=== PATIENT | male | born 1955 | race Caucasian/White ===

== ENCOUNTER 2025-04-29 09:32 | Outpatient (AMB) | payer OTHER, SELFPAY ==
--- OUTSIDE RECORDS SUMMARY | 2024-06-03 05:00 | XMS_ITS | Encounter Summary ---
Author Name [facility] [place] [facility] [place] Address [address], [place] [address] Care Team Providers Care [employer] Worker Name Role Phone ALBERTO JULIAN Primary Care Provider Unavailabl e Insurance Providers: All historical and current Section Date Range: From patient's date of to the date document was created. This section includes the names of all active insurance providers for the patient. Insurance Provider Type of Coverage Plan Name Start of Policy Coverage End of Policy Coverage Group Number Member ID Insurance Provider's Telephone Number Policy Dodson's Name Patient's Relationship to Policy Dodson MEDICARE (WNR) MEDICARE (M) PART B Mar 02, 2019 PART B [id number] [phone] RENATO FOLEYINO PATIENT MEDICARE (WNR) MEDICARE (M) PART A Jan 31, 2018 PART A [id number] ISAMAR FOLEY PATIENT [facility] (WNR) MEDICARE ADVANTAGE [facility] (WNR) Sep 02, 2019 [facility] [id number] OGISAMAR PATIENT [facility] (WNR) MEDICARE ADVANTAGE [facility](W NR) Sep 02, 2019 [facility] [id number] ISAMAR FOLEY PATIENT Selected Encounter This section includes the information on record at [place] for the Encounter. Date/Time Encounter Type Encounter Description Reason Provider Source Jun 03, 2024 09:00 AM COMPRE OPH EXAM EST PT 1/> OPTOMETRY ICD-10-CM H04.123 Dry eye syndrome of bilateral lacrimal glands VALE LUO [facility] Encounter Template Text not used by [place] Assessments - Encounter Diagnoses This section includes the primary and secondary diagnoses documented for the Encounter. 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 This section includes future appointments and future orders which are active, pending or scheduled. Future Appointments This section includes appointments that were scheduled to occur 6 months from the date of the Encounter, up to a maximum of 20 appointments. The data comes from all [place] treatment facilities. Appointment Date/Time Appointment Type Appointme nt Facility Name Aug 05, 2024 10:30 AM [facility] Sep 09, 2024 08:30 AM [facility] Sep 16, 2024 10:00 AM AMBULATORY - MEDICINE [facility] Social History: Smoking Status (Most current) and Tobacco Use (All prior to encounter date) This section includes the most current, and the historical, smoking and tobacco- related health factors from the [place] facility where the Encounter took place. Current Smoking Status This section includes the most current smoking, or tobacco-related health factor, from the [place] facility where the Encounter took place. Date/Time Current Smoking Status Comment Facil ity Feb 03, 2024 11:00 AM VA-TOBACCO NEVER USED [facility] Tobacco Use History This section includes a history of the smoking, or tobacco-related health factors, that were collected on or before the date of the Encounter. The data comes from the [place] facility where the Encounter took place. Date/Time Smoking Status/Tobacco Use Comment F acility January 25, 2023 11:00 AM VA-TOBACCO NEVER USED [facility] January 22, 2022 08:30 AM VA-TOBACCO NEVER USED [facility] January 10, 2021 09:00 AM VA-TOBACCO NEVER USED [facility] Dec 08, 2019 09:25 AM VA-TOBACCO NEVER USED [facility] Nov 17, 2018 09:09 AM VA-TOBACCO NEVER USED [facility] Jun 19, 2017 11:17 AM LIFETIME NON-TOBACCO USER [facility] May 17, 2016 10:41 AM LIFETIME NON-TOBACCO USER [facility] May 06, 2015 09:03 AM LIFETIME NON-TOBACCO USER [facility] Encounter Notes: All associated encounter notes This section contains the clinical notes associated to the Encounter. Date/Time Encounter Note(s) Provider Source Jun 03, 2024 07:10 AM OPTOMETRY NOTE: LOCAL TITLE: OPTOMETRY NOTE STANDARD TITLE: OPTOMETRY NOTE DATE OF NOTE: JUN 03, 2024@07:10 ENTRY DATE: JUN 03, 2024@07:10:39 AUTHOR: RHONDA MESSER COSIGNER: VALE LUO URGENCY: STATUS: COMPLETED OPTOMETRY NOTE Has ADDENDA Active problems - Computerized Problem List is the source for the followin. Hoarse 2. CAD - Coronary Artery Disease ([facility] [id number]) 3. Sleep apnea 4. Impaired fasting glucose 5. Hypercholesterolemia ([facility] [id number]) 6. Ankle pain 7. Impaired fasting glucose 8. Cocaine dependence in remission ([facility] [id number]) 9. Alcohol dependence 10. Housing lack 11. HTN - Hypertension 12. Non-cardiac chest pain Active Outpatient Medications (including Supplies): Active Outpatient Medications Status 1) AMLODIPINE BESYLATE 10MG TAB TAKE ONE TABLET BY MOUTH ACTIVE ONCE DAILY FOR BLOOD PRESSURE/HEART, DO NOT TAKE WITH GRAPEFRUIT JUICE 2) ASPIRIN 81MG EC TAB TAKE ONE TABLET BY MOUTH ONCE ACTIVE DAILY TO PREVENT STROKE/HEART ATTACK 3) ATORVASTATIN CALCIUM 80MG TAB TAKE ONE TABLET BY ACTIVE MOUTH AT BEDTIME 4) CLOPIDOGREL BISULFATE 75MG TAB TAKE ONE TABLET BY ACTIVE MOUTH ONCE DAILY 5) ISOSORBIDE MONONITRATE 30MG SA TAB TAKE ONE TABLET BY ACTIVE MOUTH ONCE DAILY 6) TAMSULOSIN HCL 0.4MG CAP TAKE ONE CAPSULE BY MOUTH AT ACTIVE BEDTIME Active Non-VA Medications Status 1) Non-VA MULTIVITAMIN/MINERALS CAP/TAB 1 TABLET BY ACTIVE MOUTH ONCE DAILY 7 Total Medications Allergies: Patient has answered NKA All medications including those prescribed by outside VA's, community providers, and all OTC meds were reviewed and reconciled with patient to the best of their abilities. This 69 year old MALE is seen today for annual CEE UVALDO: 05/28/23 Chief Complaint: Veterans reported that sometimes he feels a sharp pain in the right eye and the eyes fell dry. He only uses the Refresh gtt BID prn on the day that eyes are dry. 1 mo ago he experienced some thick serous discharge in the right eye after he touched his eyes and last for 2 days. He also reported itchiness occasionally along with mild redness but symptoms are relieved with rubbing eyes. Unaware of particular seasons that could trigger itchiness OHx: 1. Cataracts OU 2. Dry eyes OU 3. Refractive error OU Ocular Medications: Refresh gtt (-) Pain: (-) NAZARIO: (-) Diplopia: (-) Flashes: (+) Floaters: Longstanding OU (-) Amaurosis Fugax/Tia's: (-) Eye Injury: (-) Eye Surgery: (-) TBI FOHx: (-) Glaucoma/ARMD/Blindness VITALS (most recent, as listed in the electronic record): B/P: 137/77 (02/25/2024 11:52) Pulse: 62 (02/25/2024 11:52) Temperature: 97.4 F [36.3 C] (02/25/2024 11:52) Weight: 198 lb [89.81 kg] (02/25/2024 11:52) Height: 64 in [162.6 cm] (02/03/2024 10:47) BMI: BMI: 34.1 PERTINENT LABS: HEMOGLOBIN A1C TREND Collection DT Spec HGBA1c 01/03/2021 08:08 BLOOD 5.7 H (-) Smoker/Length of Time/PPD: Current Rx with last BCVA: OD: +1.00 SPH 20/20 OS: +1.25-0.50 x150 20/20 Add: +2.25 20/20 OU DVA ( )sc ( x )cc - phoropter OD: 20/20 OS: 20/20 Pupils: PERRL (-)APD EOMs: SAFE OU, (-)Pain/Diplopia CVF (facial, peripheral): FTFC OU Subjective Refraction: OD: +1.00 SPH 20/20 OS: +1.25-0.50 x150 20/20 Add: +2.25 20/20 OU All the above performed by student, reviewed by attending Anterior segment: Performed by student, repeated by attending Lids: Severe dermatochalasis OU Conj: Mild papillae and mild hyperemia OU Cornea: Dense Arcus OU AC: D&Q OU Angles: 4x4 OU Iris: flat and clear OU Lens: 1+ NSC OU Tonometry: Performed by student, reviewed by attending [x ] GAT [ ] iCare OD 15 mmHg OS 17 mmHg Time:9:10am Fundus exam: Dilated: xxx Non dilated: Dilating Drops: 1GTT 1 % Tropicamide OU & 1GTT 2.5% Phenylephrine OU (Pt. ed. on side effects, dilation warning given and verbal consent obtained) Patient advised not to drive if they feel they have any symptoms which could affect their ability to drive safely. Patient advised not to engage in any activities which could put themselves or others at risk if they feel they have any symptoms which could affect their ability to perform those activities safely. Performed by student, repeated by attending Vit: PVD OU C/D: 0.25 OD and 0.15 OS with pink & healthy rim tissue Macula: OD: trace fine drusens at temporally at para-fovea OS: trace hard drusens superiorly at para-fovea PPole: clear OU A/V: 2/3 Vessels: normal caliber OU Periph: flat and intact (-)holes, tears, detachments 360 OU Assessment/Plan: 1. Dry eyes OU; symptomatic - Pt. ed. on today's findings - Ordering Refresh to use BID-QID OU even on days when eyes are not feeling dry and recommended chilled Refresh to relieve itchy symptoms - Monitor 2. Combined Form Cataracts OU - Pt. ed. on findings - cataracts are not visually significant and that surgery is not necessary at this time - Ed. on importance of UV protection and on symptoms of glare - Continue to monitor 3.Hyperopia and presbyopia OU - Pt. ed. on todays findings - Is going to pick out new frames for DVO and NVO - Monitor Return to Clinic 1yr or earlier PRN /es/ RHONDA MESSER OPTOMETRY STUDENT Signed: 06/03/2024 11:58 /hi/ VALE LUO OD Loss Prevention/Safety District Manager Cosigned: 06/03/2024 13:06 06/03/2024 ADDENDUM STATUS: COMPLETED The optometry internet salesperson participated in this exam, I saw this [place] in conjunction with the optometry student. The entrance tests and refraction were performed by the student and reviewed by me. I personally met with the patient, confirmed the history, complaints and the student's findings, and performed slit lamp and fundus evaluation as indicated. I reviewed and agree with the stated findings, assessment and plan. I have added/edited the documentation to reflect my exam findings and changes to the assessment and plan. patient offered and declined printed medication list Medication Reconciliation: Outpatient: Has the patient been taking medications as documented in the EMLR? YES: The patient has been taking medications as documented in the EMLR. Essential Medication List for Review used to complete this medication reconciliation. INCLUDED IN THIS LIST: Alphabetical list of active outpatient prescriptions dispensed from this [facility] (local) and dispensed from another VA or [facility] facility (remote) as well as inpatient orders (local, pending and active), local clinic medications, locally documented non-VA medications, and local prescriptions that have or been discontinued in the past 90 days. - All changes in medications, including all non-VA/Herbal/OTC medications were entered into CPRS. - If there were any medications the patient should no longer take, they were discontinued. - The patient/caregiver was instructed to update this list, discard old lists, and take this list to the next appointment, whether with a VA or non-VA provider. JLV Link Data on this list may not be complete. Please check JLV. Allergies/ADRs (Tool #5) FACILITY ALLERGY/ADR -------- [facility] NO KNOWN ALLERGIES [facility] No Known Allergies Med Recon NoGlossary (Tool #1) INCLUDED IN THIS LIST: Alphabetical list of active outpatient prescriptions dispensed from this [facility] (local) and dispensed from another VA or [facility] facility (remote) as well as inpatient orders (local pending and active), local clinic medications, locally documented non-VA medications, and local prescriptions that have or been discontinued in the past 90 days. Non-VA Meds Last Documented On: Aug 15, 2021 NOTE The display of VA prescriptions dispensed from another [facility] or [facility] facility (remote) is limited to active outpatient prescription entries matched to National Drug File at the originating site and may not include some items such as investigational drugs, compounds, etc. NOT INCLUDED IN THIS LIST: Medications self-entered by the patient into personal health records (i.e. [facility]) are NOT included in this list. Non-VA medications documented outside this [facility], remote inpatient orders (regardless of status) and remote clinic medications are NOT included in this list. The patient and provider must always discuss medications the patient is taking, regardless of where the medication was dispensed or obtained. OUTPT AMLODIPINE BESYLATE 10MG TAB (Status = Active) TAKE ONE TABLET BY MOUTH ONCE DAILY FOR BLOOD PRESSURE/HEART, DO NOT TAKE WITH GRAPEFRUIT JUICE Rx# [id number] Last Released: 02/04/24 Qty/Days Supply: Rx Expiration Date: 02/03/25 Refills Remainin Indication: FOR HIGH BLOOD PRESSURE OUTPT ASPIRIN 81MG EC TAB (Status = Active) TAKE ONE TABLET BY MOUTH ONCE DAILY TO PREVENT STROKE/HEART ATTACK Rx# [id number] Last Released: 04/16/24 Qty/Days Supply: 120/ Rx Expiration Date: 02/03/25 Refills Remainin Indication: FOR MYOCARDIAL REINFARCTION PREVENTION OUTPT ATORVASTATIN CALCIUM 80MG TAB (Status = Active) TAKE ONE TABLET BY MOUTH AT BEDTIME Rx# [id number] Last Released: 04/16/24 Qty/Days Supply: 90/ Rx Expiration Date: 02/03/25 Refills Remainin Indication: FOR HIGH CHOLESTEROL OUTPT CARBOXYMETHYLCELLULOSE NA 0.5% OPH SOLN (Status = Active/Suspended) INSTILL 1 DROP INTO EACH EYE FOUR TIMES DAILY NEEDED FOR DRY EYE Rx# [id number] Last Released: Supply: Rx Expiration Date: 06/04/25 Refills Remainin Indication: FOR DRY EYE OUTPT CLOPIDOGREL BISULFATE 75MG TAB (Status = Active) TAKE ONE TABLET BY MOUTH ONCE DAILY Rx# [id number] Last Released: 02/26/24 Qty/Days Supply: Rx Expiration Date: 02/03/25 Refills Remainin Indication: TO PREVENT BLOOD CLOTS OUTPT CLOTRIMAZOLE 1% TOP SOLN (Status = ) APPLY DIRECTED TOPICALLY ONCE DAILY FOR FUNGAL INFECTION Rx# [id number] Last Released: 02/03/24 Qty/Days Supply: Rx Expiration Date: 03/14/24 Refills Remainin Indication: FOR FUNGAL INFECTION OF THE SKIN OUTPT ISOSORBIDE MONONITRATE 30MG SA TAB (Status = Active) TAKE ONE TABLET BY MOUTH ONCE DAILY Rx# [id number] Last Released: 02/26/24 Qty/Days Supply: Rx Expiration Date: 02/03/25 Refills Remainin Indication: TO PREVENT ANGINA Non-VA MULTIVITAMIN/MINERALS CAP/TAB TAKE ONE TABLET BY MOUTH ONCE DAILY Patient wants to buy from Non-VA pharmacy. OUTPT TAMSULOSIN HCL 0.4MG CAP (Status = Active) TAKE ONE CAPSULE BY MOUTH AT BEDTIME Rx# [id number] Last Released: 02/04/24 Qty/Days Supply: Rx Expiration Date: 02/03/25 Refills Remainin Indication: FOR ENLARGED PROSTATE SUPPLIES /hi/ VALE LUO OD Loss Prevention/Safety District Manager Signed: 06/03/2024 13:07 RHONDA MESSER [facility] [place] [facility]
--- OUTSIDE RECORDS SUMMARY | 2024-08-05 06:30 | XMS_ITS | Encounter Summary ---
Author Name [facility] [place] [facility] [place] Address [address] [place] [address] Care Team Providers Care Water Conservationist Name Role Phone JEAN JONES Primary Care Provider Unavailabl e Insurance Providers: [...] PART B Mar 02, 2019 PART B [id number] [phone] ISAMAR FOLEY PATIENT MEDICARE (WNR) MEDICARE (M) PART A Jan 31, 2018 PART A [id number] [phone] RENATO FOLEYINO PATIENT [facility] (WNR) MEDICARE ADVANTAGE [facility] (WNR) Sep 02, 2019 [facility] [id number] RENATO FOLEYINO PATIENT [facility] (WNR) MEDICARE ADVANTAGE [facility](W NR) Sep 02, 2019 [facility] [id number] ISAMAR FOLEY PATIENT Selected Encounter This section includes the information on record at [place] for the Encounter. Date/Time Encounter Type Encounter Description Reason Provider Source Aug 05, 2024 10:30 AM OFFICE O/P EST MOD 30 MIN PRIMARY CARE/MEDICINE ICD-10-CM R73.01 Impaired fasting glucose JEAN JONES [facility] Encounter Template Text not used by [place] Assessments - Encounter Diagnoses This section includes the primary and secondary diagnoses documented for the Encounter. Date/Time Primary/Secondary Diagnosis Diagnosis Name Provider Source Aug 05, 2024 10:57 AM PRIMARY Impaired fasting glucose JEAN JONES [facility] Plan of Treatment: Future Appointments (+ 6 months) and Future Tests (+/- 45 days) The Plan of Treatment section includes future care activities for the patient [facility] [place] [facility] This section includes future appointments and future orders which are active, pending or scheduled. Future Appointments This section includes appointments that were scheduled to occur 6 months from the date of the Encounter, up to a maximum of 20 appointments. The data comes from all [place] treatment facilities. Appointment Date/Time Appointment Type Appointme nt Facility Name Sep 09, 2024 08:30 AM AMBULATORY - MEDICINE [facility] Sep 16, 2024 10:00 AM AMBULATORY MEDICINE [facility] December 31, 2024 01:00 PM AMBULATORY MEDICINE [facility] Lab Results: +/- 30 days of the encounter This section includes the Chemistry and Hematology Lab Results on record with [place] for the patient. Radiology Reports and Pathology Reports are provided separately, in subsequent sections. Lab Results This section contains the Chemistry/Hematology Results that were resulted 30 days before or 30 daysafter the date of the Encounter. Date/Time Source Result Type Result - Unit Interpretation Reference Range Specimen Type Comment Jul 29, 2024 07:43 AM [facility] LIVER FUNCTION SERUM Specimen Type: SERUM No comment entered. Ordering Provider: JEAN JONES Report Released Date/Time: Jul 24, 2024 09:58 PM Reporting Lab: [facility] [address] [address] Performing Lab: [address] [address] PROTEIN,TOTAL 7.2 g/dL 6.0-8.3 ALBUMIN 4.1 g/dL 3.5-5.0 ALKALINE PHOSPHATASE 69 U/L 40-150 AST 20 U/L 5-34 ALT 26 U/L BILIRUBIN, TOTAL 1.1 mg/dL 0.2-1.2 Jul 29, 2024 07:43 AM [facility] BASIC METABOLIC PANEL (fasting) SERUM Specime n Type: SERUM No comment entered. Ordering Provider: JEAN JONES Report Released Date/Time: Jul 24, 2024 09:58 PM Reporting [facility] [address] [facility] [address] Performing Lab[facility] [address] [address] UREA NITROGEN 18 mg/dL 7-25 GLUCOSE 111 mg/dL H 65-100 SODIUM 141 mmol/L 135-145 POTASSIUM 4.3 mmol/L 3.5-5.0 CHLORIDE 106 mmol/L 100-110 CO2 25 meq/L 20-30 CREATININE, Serum 0.97 mg/dL 0.50-1.40 eGFR(CKD-EPI 2020) 83 mL/min >60 Jul 29, 2024 07:43 AM [facility] LIPID PANEL FASTING SERUM Specimen Type: SERU M No comment entered. Ordering Provider: JEAN JONES Report Released Date/Time: Jul 24, 2024 09:58 PM Reporting Lab: [facility] [address] [facility] [address] Performing Lab: [address] [address] CHOLESTEROL 137 mg/dL TRIGLYCERIDE 104 mg/dL 0-150 LDL calculated 59 mg/dL 0-129 CHOL/HDL 2.4 HDL CHOLESTEROL 57 mg/dL 40-60 Jul 29, 2024 07:43 AM [facility] TSH SERUM Specimen Type: SERUM No comment entered. Ordering Provider: JEAN JONES Report Released Date/Time: Jul 24, 2024 09:58 PM Reporting Lab: [facility] [address] [facility] [address] Performing Lab: [address] [address] TSH 0.75 u[IU]/mL 0.35-5.00 Jul 29, 2024 07:43 AM [facility] MICROSCOPIC AUTOMATED, URINE URINE Specimen T ype: URINE Comment: If Glucose = >500 and Ketones are positive, please alert the Physician. Ordering Provider: JEAN JONES Report Released Date/Time: Jul 24, 2024 09:58 PM Reporting Lab: [facility] [address] [facility] [address] Performing Lab: [facility] [address] [facility] [address] UA WBC 0-5 /[HPF] 0-5 UA MUCUS FEW /[LPF] Trace UA HYALINE CASTS 2-4 /[LPF] 0-2 UA RBC 0-2 /[HPF] 0-3 Jul 29, 2024 07:43 AM [facility] CBC AND DIFF (AUTO) BLOOD Specimen Type: BLOO D No comment entered. Ordering Provider: JEAN JONES Report Released Date/Time: Jul 24, 2024 09:58 PM Reporting Lab: [facility] [address] [facility] [address] Performing Lab: [address] [address] WBC 4.71 10*3/uL 4.50-11.00 RBC 5.37 10*6/uL 4.23-5.66 HGB 14.5 g/dL 12.8-17 HCT 44.9 39.2-50.4 MCV 83.6 fL 82-99 MCHC 32.3 g/dL 30.8-35.1 PLT 213 10*3/uL 140-360 RDW-CV 13.7 12.0-16.0 MONO, ABS 0.45 10*3/uL 0.30-1.10 MCH 27.0 pg 26.2-32.6 NEUT % 60.7 43.7-75.8 LYMPH % 26.3 14.0-42.3 MONO % 9.6 5.1-13.7 EOS % 2.8 0.4-6.8 BASO % 0.2 0.1-2.0 NEUT, ABS 2.86 10*3/uL 2.20-7.60 LYMPH, ABS 1.24 10*3/uL 1.00-3.20 EOS, ABS 0.13 10*3/uL 0.03-0.44 BASO, ABS 0.01 10*3/uL 0.01-0.13 IMMATURE GRAN % 0.4 0.0-0.7 IMMATURE GRAN, ABS 0.02 10*3/uL 0.00-0.0 6 NRBC % 0.0 0.0-0.0 NRBC, ABS 0.00 10*3/uL 0.00-0.00 Jul 29, 2024 07:43 AM [facility] URINALYSIS CLEAN CATCH URINE Specimen Type: U RINE Comment: If Glucose = >500 and Ketones are positive, please alert the Physician. Ordering Provider: JEAN JONES Report Released Date/Time: Jul 24, 2024 09:58 PM Reporting Lab: [address] [address] Performing Lab: [address] [address] UA COLOR Light-Yellow Yellow UA APPEARANCE Clear Clear UA GLUCOSE Normal mg/dL Negative UA KETONES NEGATIVE mg/dL Negative UA BLOOD NEGATIVE mg/dL Negative UA PROTEIN 30 mg/dL Negative UA NITRITE NEGATIVE mg/dL Negative UA BILIRUBIN NEGATIVE mg/dL Negative UA SPECIFIC GRAVITY 1.023 H 1.016-1.022 UA pH 5.5 5.0-9.0 UA UROBILINOGEN Normal mg/dL <2.0 UA LEUKOCYTE NEGATIVE Negative Vital Signs: All taken on the encounter date This section contains inpatient and outpatient Vital Signs collected on the date of the Encounter. Date/Time Temperature Pulse Blood Pressure Respiratory Rate SP02 Pain Height Weight Body Mass Index Source Aug 05, 2024 10:22 AM 97.9 53 132/81 16 98 1 64 206.1 35 [facility] Social History: Smoking Status (Most current) and Tobacco Use (All prior to encounter date) This section includes the most current, and the historical, smoking and tobacco- related health factors from the [place] facility where the Encounter took place. Current Smoking Status This section includes the most current smoking, or tobacco-related health factor, from the [place] facility where the Encounter took place. Date/Time Current Smoking Status Comment Facil ity Feb 03, 2024 11:00 AM VA-TOBACCO NEVER USED [place] [facility] [place] [facility] Tobacco Use History This section includes a history of the smoking, or tobacco-related health factors, that were collected on or before the date of the Encounter. The data comes from the [place] facility where the Encounter took place. Date/Time Smoking Status/Tobacco Use Comment F acility January 25, 2023 11:00 AM VA-TOBACCO NEVER USED [place] [facility] [place] [facility] January 22, 2022 08:30 AM VA-TOBACCO NEVER USED [place] [facility] [place] [facility] January 10, 2021 09:00 AM VA-TOBACCO NEVER USED [facility] [place] [facility] Dec 08, 2019 09:25 AM VA-TOBACCO NEVER USED [facility] [place] [facility] Nov 17, 2018 09:09 AM VA-TOBACCO NEVER USED [facility] [place] [facility] Jun 19, 2017 11:17 AM LIFETIME NON-TOBACCO USER [facility] [place] [facility] May 17, 2016 10:41 AM LIFETIME NON-TOBACCO USER [facility] [place] [facility] May 06, 2015 09:03 AM LIFETIME NON-TOBACCO USER [facility] [place] [facility] Encounter Notes: All associated encounter notes This section contains the clinical notes associated to the Encounter. Date/Time Encounter Note(s) Provider Source Aug 05, 2024 10:49 AM PHYSICIAN NOTE: LOCAL TITLE: MD NOTE STANDARD TITLE: PHYSICIAN NOTE DATE OF NOTE: AUG 05, 2024@10:49 ENTRY DATE: AUG 05, 2024@10:49:30 AUTHOR: JEAN JONES EXP COSIGNER: URGENCY: STATUS: COMPLETED Patient Name: ISAMAR FOLEY VITALS: Patient temperature: 97.9 F [36.6 C] (08/05/2024 10:22) Blood pressure: 132/81 (08/05/2024 10:22) Patient height: 64 in [162.6 cm] (08/05/2024 10:22) Patient weight: 206.1 lb [93.49 kg] (08/05/2024 10:22) Patient BMI: BMI: 35.5 Patient pulse: 53 (08/05/2024 10:22) Patient respiration: 16 (08/05/2024 10:22) Patient Pulse Oximetry: 98% (08/05/2024 10:22) Pain Ratin (08/05/2024 10:22) Active [facility] Medications: Active Outpatient Medications (including Supplies): Active Outpatient Medications Status 1) AMLODIPINE BESYLATE 10MG TAB TAKE ONE TABLET BY MOUTH ACTIVE ONCE DAILY FOR BLOOD PRESSURE/HEART, DO NOT TAKE WITH GRAPEFRUIT JUICE 2) ASPIRIN 81MG EC TAB TAKE ONE TABLET BY MOUTH ONCE ACTIVE DAILY TO PREVENT STROKE/HEART ATTACK 3) ATORVASTATIN CALCIUM 80MG TAB TAKE ONE TABLET BY HOLD MOUTH AT BEDTIME 4) CARBOXYMETHYLCELLULOSE NA 0.5% OPH SOLN INSTILL 1 ACTIVE DROP INTO EACH EYE FOUR TIMES DAILY NEEDED FOR DRY EYE 5) CLOPIDOGREL BISULFATE 75MG TAB TAKE ONE TABLET BY ACTIVE MOUTH ONCE DAILY 6) ISOSORBIDE MONONITRATE 30MG SA TAB TAKE ONE TABLET BY ACTIVE MOUTH ONCE DAILY 7) TAMSULOSIN HCL 0.4MG CAP TAKE ONE CAPSULE BY MOUTH AT ACTIVE BEDTIME Active Non-VA Medications Status 1) Non-VA MULTIVITAMIN/MINERALS CAP/TAB 1 TABLET BY ACTIVE MOUTH ONCE DAILY 8 Total Medications Remote Medications: No Active Remote Medications for this patient equal opportunity assistant note Chief complaint: Impaired fasting glucose History of present illness 13 pound weight gain in the past few years. Patient says he went to [place] on vacation and had lots of good food. Eats too much rice and pork. Feels well today with no complaints Review of systems No chest pain or dyspnea No abdominal pain No trouble urinating No fever or chills No cough Physical examination Well-developed well-nourished male in no acute distress Coronary no murmur Lungs clear Carotid no bruit No peripheral edema WBC/HPF: 0-5 RBC/HPF: 0-2 MUCUS: FEW HYALINE/CASTS/LPF: 2-4 Color, Urine (AX 4280): Light-Yellow Appearance, Urine (AX 4280): Clear Glucose, Urine (AX 4280): Normal Ketones, Urine (AX 4280): NEGATIVE Blood, Urine (AX 4280): NEGATIVE Protein, Urine (AX 4280): 30 Nitrite, Urine (AX 4280): NEGATIVE Bilirubin, Urine (AX 4280): NEGATIVE Specific [place], (AX 4280): 1.023 H pH, Urine ([id number]): 5.5 Urobilinogen, Urine (AX 4280): Normal Leukocyte Esterase, (AX 4280): NEGATIVE TSH (Access): 0.75 GLUCOSE: 111 H UREA NITROGEN: 18 SODIUM: 141 POTASSIUM: 4.3 CHLORIDE: 106 CO2: 25 CHOLESTEROL: 137 PROTEIN,TOTAL: 7.2 ALBUMIN: 4.1 ALKALINE PHOSPHATASE: 69 SGOT: 20 SGPT: 26 TRIGLYCERIDE: 104 LDL CHOL: 59 CHOL/HDL RATIO: 2.4 HDL: 57 BILIRUBIN,TOT.: 1.1 CREATININE-EGFR: 0.97 eGFR CKD-EPI 2020: 83 WBC: 4.71 RBC: 5.37 HGB: 14.5 HCT: 44.9 MCV: 83.6 MCHC: 32.3 RDW: 13.7 PLT: 213 MCH: 27.0 Neut %: 60.7 Lymph %: 26.3 [place] %: 9.6 Eos %: 2.8 Baso %: 0.2 Neut, Abs: 2.86 Lymph, Abs: 1.24 [place], Abs: 0.45 Eos, Abs: 0.13 Baso, Abs: 0.01 Immature Granulocytes %: 0.4 Immature Granulocytes, Abs: 0.02 NRBC%: 0.0 NRBC#: 0.00 I discussed above test results with patient Assessment and plan: 1. Impaired fasting glucose: Provided education about diet, weight loss and exercise Plan: Continue education Follow-up 6 months clinic visit and lab I spent 30 minutes with patient on this clinic visit Medication Reconciliation: Outpatient: Has the patient been taking medications as documented in the EMLR? YES: The patient has been taking medications as documented in the EMLR. Essential Medication List for Review used to complete this medication reconciliation. INCLUDED IN THIS LIST: Alphabetical list of active outpatient prescriptions dispensed from this [place] (local) and dispensed from another [place] or [place]D facility (remote) as well as [...] whether with a VA or non-VA provider. Influenza Immunization: Deferral / Refusal The patient declines to receive the recommended dose of seasonal influenza vaccine. Immunization: INFLUENZA, UNSPECIFIED FORMULATION Refusal Reason: PATIENT DECISION Patient refuses all immunization(s) in the FLU group Date Documented: 08/05/24 10:55 COVID-19 Immunization: Refused Moderna Monovalent COVID-19 vaccine Immunization: COVID-19 (MODERNA), MRNA, LNP-S, PF, 50 MCG/0.5 ML (AGES 12+ YEARS) Refusal Reason: PATIENT DECISION Patient refuses all immunization(s) in the COVID-19 group Date Documented: 08/05/24 10:55 Assess Statin Use - Lipids (CVD/DM): The patient is already on a statin. The patients prescription for a statin was reviewed and updated. /hi/ Jean Jones MD Staff Physician Signed: 08/05/2024 10:57 JEAN JONES [place] [facility] [place] [facility] Aug 05, 2024 10:28 AM PREVENTIVE MEDICINE NURSING NOTE: LOCAL TITLE: CLINICAL REMINDERS/NURSING STANDARD TITLE: PREVENTIVE MEDICINE NURSING NOTE DATE OF NOTE: AUG 05, 2024@10:28 ENTRY DATE: AUG 05, 2024@10:28:06 AUTHOR: LIN FOWLER COSIGNER: URGENCY: STATUS: COMPLETED Alcohol Use Screen (AUDIT-C): Alcohol Screen: SCREEN FOR ALCOHOL (AUDIT-C) An alcohol screening test (AUDIT-C) was negative (score=3). 1. How often did you have a drink containing alcohol in the past year? Consider a drink to be a 12 ounce can or bottle of regular beer, 8 ounces of malt liquor, a 5 ounce glass of table wine, or a 1.5 ounce shot of liquor (like scotch, gin, or vodka). Two to four times a month 2. How many drinks containing alcohol did you have on a typical day when you were drinking in the past year? One or two drinks 3. How often did you have six or more drinks on one occasion in the past year? Less than monthly Sexual Orientation: The patient thinks of their sexual orientation as: Straight or Heterosexual Depression Screening: Perform PHQ-2 A PHQ-2 screen was performed. The score was 2 which is a negative screen for depression. Over the past two weeks, how often have you been bothered by the following problems? 1. Little interest or pleasure in doing things Several days 2. Feeling down, depressed, or hopeless Several days Suicide Screen: C-SSRS Screening [place] Suicide Severity Rating Scale (C-SSRS) screener 1. Over the past month, have you wished you were or wished you could go to sleep and not wake up? No 2. Over the past month, have you had any actual thoughts of killing yourself? No 3. Over the past month, have you been thinking about how you might do this? Response not required due to responses to other questions. 4. Over the past month, have you had these thoughts and had some intention of acting on them? Response not required due to responses to other questions. 5. Over the past month, have you started to work out or worked out the details of how to kill yourself? Response not required due to responses to other questions. 6. If yes, at any time in the past month did you intend to carry out this plan? Response not required due to responses to other questions. 7. In your lifetime, have you ever done anything, started to do anything, or prepared to do anything to end your life (for example, collected pills, obtained a gun, gave away valuables, went to the roof but didn't jump)? No 8. If YES, was this within the past 3 months? Response not required due to responses to other questions. Homelessness/Food Insecurity Screen: In the past 2 months, have you been living in stable housing that you own, rent, or stay in as part of a household? Yes - Living in stable housing. Are you worried or concerned that in the next 2 months you may NOT have stable housing that you own, rent, or stay in as part of a household? No - Not worried about housing near future [facility] [place] reports the following: Within the past 12 months, you worried whether your food would run out before you got money to buy more. Never true Within the past 12 months, the food you bought just didn't last and you didn't have money to get more. Never true (Optional) Whole Health Documentation: What matters the most to you? What motivates you to be healthy? (MAP) Response: girls Advance Directive Screen AD: Patient does not have a completed advance directive on file at any facility, [place] or outside. S/he is not interested in completing one at this time. The patient received education about Advance Directives and written notification of his/her rights. Comment: not at this time /hi/ LIN FOWLER LPN LPN Signed: 08/05/2024 10:31 LIN FOWLER [place] [facility]
--- OUTSIDE RECORDS SUMMARY | 2024-09-09 04:30 | XMS_ITS | Encounter Summary ---
Author Name [facility] [place] [facility] [place] Address [address] [place] [address] Care Team Providers Care Cartographic Drafter Name Role Phone ALBERTO JULIAN Primary Care [...] PART B Mar 02, 2019 PART B [id number] ISAMAR FOLEY PATIENT MEDICARE (WNR) MEDICARE (M) PART A Jan 31, 2018 PART A [id number] [phone] RENATO FOLEYINO PATIENT [facility] (WNR) MEDICARE ADVANTAGE [facility] (WNR) Sep 02, 2019 [facility] [id number] RENATO FOLEYINO PATIENT [facility] (WNR) MEDICARE ADVANTAGE [facility](W NR) Sep 02, 2019 [facility] [id number] ISAMAR FOLEY PATIENT Selected Encounter This section includes the information on record at [place] for the Encounter. Date/Time Encounter Type Encounter Description Reason Provider Source Sep 09, 2024 08:30 AM OFFICE O/P EST MOD 30 MIN PODIATRY ICD-10-CM M20.11 Hallux valgus (acquired), right foot BRITTNI JOY E Encounter Template Text not used by [place] Assessments - Encounter Diagnoses This section includes the primary and secondary diagnoses documented for the Encounter. Date/Time Primary/Secondary Diagnosis Diagnosis Name Provider Source Sep 09, 2024 03:25 PM PRIMARY Hallux valgus (acquired), right foot [facility]NI [facility]Y [facility] Sep 09, 2024 03:25 PM SECONDARY Bunion of right foot BRITTNI JOY [facility] Plan of Treatment: Future Appointments (+ 6 months) and Future Tests (+/- 45 days) The Plan of Treatment section includes future care activities for the patient [facility] [place] [facility] This section includes future appointments and future orders which are active, pending or scheduled. Future Appointments This section includes appointments that were scheduled to occur 6 months from the date of the Encounter, up to a maximum of 20 appointments. The data comes from all [place] treatment facilities. Appointment Date/Time Appointment Type Appointme nt Facility Name Sep 16, 2024 10:00 AM [facility] [place] [facility] December 31, 2024 01:00 PM [facility] [place] [facility] [place] [facility] Feb 05, 2025 08:00 AM AMBULATORY - MEDICINE [place] [facility] [place] [facility] Feb 22, 2025 02:30 PM [facility] Social History: Smoking Status (Most current) and Tobacco Use (All prior to encounter date) This section includes the most current, and the historical, smoking and tobacco- related health factors from the [place] facility where the Encounter took place. Current Smoking Status This section includes the most current smoking, or tobacco-related health factor, from the [place] facility where the Encounter took place. Date/Time Current Smoking Status Comment Rafia davis Feb 03, 2024 11:00 AM [place]-TOBACCO NEVER USED [facility] Tobacco Use History This section includes a history of the smoking, or tobacco-related health factors, that were collected on or before the date of the Encounter. The data comes from the [place] facility where the Encounter took place. Date/Time Smoking Status/Tobacco Use Comment F acility January 25, 2023 11:00 AM VA-TOBACCO NEVER USED [facility] [place] [facility] January 22, 2022 08:30 AM VA-TOBACCO NEVER USED [facility] [place] [facility] January 10, 2021 09:00 AM VA-TOBACCO NEVER USED [facility] [place] [facility] Dec 08, 2019 09:25 AM VA-TOBACCO NEVER USED [facility] [place] [facility] Nov 17, 2018 09:09 AM VA-TOBACCO NEVER USED [facility] [place] [facility] Jun 19, 2017 11:17 AM LIFETIME NON-TOBACCO USER [facility] [place] [facility] May 17, 2016 10:41 AM LIFETIME NON-TOBACCO USER [facility] [place] [facility] May 06, 2015 09:03 AM LIFETIME NON-TOBACCO USER [place] [facility] [place] [facility] Radiology Reports: +/- 30 days of the encounter Radiology Reports For cases when an order for radiology services may have been completed prior to the date of the Encounter, the report list includes the Radiology Reports that were completed up to 30 days before dateof the Encounter. For cases when an order for radiology services may have been completed after the date of the Encounter, the report list also includes the Radiology Reports that were completed up to30 days after date of the Encounter. The data comes from all [place] treatment facilities. Date/Time Radiology Report Provider Source Sep 09, 2024 08:43 AM FOOT 3 OR MORE VIE WS (RIGHT): ISAMAR FOLEY [id number] -1955 M Ex Date: SEP 09, 2024@08:43 Req Phys: BRITTNI JOY Loc: CWM/NO/PODIATRY A (Req'g Loc) Img Loc: [facility] Service: Unknown [place] [facility] [place] [facility] [place]ANNAH ARCINIEGA [id number] (Case 159 COMPLETE) FOOT 3 OR MORE VIEWS (RIGHT) (RAD Detailed) CPT:20664 Proc Modifiers : WEIGHT BEARING CPT Modifiers : RT RIGHT SIDE Reason for Study: finnegan;;ux valgus for sx opinion Clinical History: also hx remote blunt truama rt 2nd toe Report Status: Verified Date Reported: SEP 09, 2024 Date Verified: SEP 09, 2024 Household Appliance Repairer E-Sig:/ES/KERRI BOWEN JR Report: Study: Weight-bearing AP, lateral, and oblique views of the right foot. Comparison: None. Findings: Moderate hallux valgus deformity with moderate degenerative osteoarthritic changes present at the first MTP joint space and moderate-sized medial bunion present. Hypertrophic changes present to the lateral first ray sesamoid. Mild pes planus deformity. Small superior calcaneal spur or insertional enthesophyte. Right second hammertoe deformity. No acute bony abnormalities seen. Mild degenerative changes present to the talonavicular articulation with dorsal osteophyte formation. Impression: Hallux valgus, as described above Primary Diagnostic Code: No immediate attention required Primary Interpreting Staff: KERRI BOWEN JR, Radiologist (Household Appliance Repairer) /KERRI POPE JR [facility] Encounter Notes: All associated encounter notes This section contains the clinical notes associated to the Encounter. Date/Time Encounter Note(s) Provider Source Sep 09, 2024 08:26 AM PODIATRY NOTE: LOCAL TITLE: PODIATRY NOTE STANDARD TITLE: PODIATRY NOTE DATE OF NOTE: SEP 09, 2024@08:26 ENTRY DATE: SEP 09, 2024@08:26:11 AUTHOR: BRITTNI JOY EXP COSIGNER: URGENCY: STATUS: COMPLETED Podiatry [facility] Follow up Provider: Brittni Joy Date: SEP 09, 2024 [address] [place] [id number] Jan [birth year] MALE [phone] PATIENT PHONE - Primary Care: ALBERTO JULIAN Follow up Visit Concern: Patient is a 69-year-old gentleman with a history of bunion and hallux valgus on the right side for many years he has been seen here periodically receiving conservative care mainly in the form of footwear. He does not recall any recent x-rays, his interested in options for surgical correction. Subjective: Patient reports occasional pain with the bunion, reports occasional pain in the right second toe acknowledging remote history of blunt trauma to the toe. Otherwise no reported paresthesias or claudication noting patient's history of prediabetes. He also had history of ankle injuries nonspecific in the , but reports no instability or any significant pain issues. No functional restrictions overall. Hx:ARMY FROM Apr TO Apr Service connections:Service Connected Disabilities with % E[place]ibility: [facility] [place]IF[place] Medical problems active: Active Problem Hoarse R69., Onset 02/03/2024 ALBERTO JULIAN CAD - Coronary Artery Disease (SCT 03/21/2023 ALBERTO JULIAN Sleep apnea G47.30 08/01/2021 WEN HIGGINBOTHAM Impaired fasting glucose R73.01, On 07/24/2021 ALBERTO JULIAN Hypercholesterolemia (SCT [id number]) 07/12/2020 ALBERTO JULIAN Ankle pain M25.571, Onset 01/13/2020 ALBERTO JULIAN Impaired fasting glucose R73.01, On 05/14/2018 PHOENIX GANNON Cocaine dependence in remission (SN 06/09/2015 ANTWAN HE Alcohol dependence F10.20 06/03/2015 BRODERICK MYERS Housing lack Z59.9 06/29/2015 YOJANA COTA HTN - Hypertension 401.9 05/05/2015 ALLY FERNANDES Non-cardiac chest pain 786.59 05/05/2015 ALLY FERNANDES Active mediciation: Active Outpatient Medications (including Supplies): Active Outpatient Medications Status 1) AMLODIPINE BESYLATE 10MG TAB TAKE ONE TABLET BY MOUTH ONCE ACTIVE DAILY FOR BLOOD PRESSURE/HEART, DO NOT TAKE WITH GRAPEFRUIT JUICE Indication: FOR HIGH BLOOD PRESSURE 2) ASPIRIN 81MG EC TAB TAKE ONE TABLET BY MOUTH ONCE DAILY TO ACTIVE PREVENT STROKE/HEART ATTACK Indication: FOR MYOCARDIAL REINFARCTION PREVENTION 3) ATORVASTATIN CALCIUM 80MG TAB TAKE ONE TABLET BY MOUTH AT HOLD BEDTIME Indication: FOR HIGH CHOLESTEROL 4) CARBOXYMETHYLCELLULOSE NA 0.5% OPH SOLN INSTILL 1 DROP INTO ACTIVE EACH EYE FOUR TIMES DAILY NEEDED Indication: FOR DRY EYE 5) CLOPIDOGREL BISULFATE 75MG TAB TAKE ONE TABLET BY MOUTH ONCE ACTIVE DAILY Indication: TO PREVENT BLOOD CLOTS 6) ISOSORBIDE MONONITRATE 30MG SA TAB TAKE ONE TABLET BY MOUTH ACTIVE ONCE DAILY Indication: TO PREVENT ANGINA 7) TAMSULOSIN HCL 0.4MG CAP TAKE ONE CAPSULE BY MOUTH AT ACTIVE BEDTIME Indication: FOR ENLARGED PROSTATE Active Non-VA Medications Status 1) Non-VA MULTIVITAMIN/MINERALS CAP/TAB 1 TABLET BY MOUTH ONCE ACTIVE DAILY 8 Total Medications Allergies: Data on this list may not be complete. Please check JLV. FACILITY ALLERGY/ADR -------- [facility] NO KNOWN ALLERGIES [facility] No Known Allergies PE: Well-appearing pleasant 69-year-old male casually but neatly dressed pleasant cooperative good hygiene, NAD. Tandem propulsive gait entering leaving clinic no antalgia. Footwear in good repair and appropriate cloth with plenty of room. Palpable pedal pulses bilaterally Warm pink skin bilaterally Trace ankle edema bilaterally but no lymphatic or venous disease identified Ankle ligaments tested bilaterally: Lateral ankle ligaments including anterior talofibular ligament inferior calcaneofibular ligament intact and normal without attenuation, negative drawer test negative sag sign. Peroneal retinaculum intact with no subluxation against forced eversion no clicking. Medial deltoid ligament intact on attenuated and no pain on palpation. Rotation of the talus within the fixed mortise both internal and external rotation produces no pain or discomfort testing the anterior tibiofibular ligament, syndesmotic ligament and posterior tibiofibular ligaments. Sensate to light touch pain and temperature bilateral all dermatomes No subjective or perceived sensory loss Muscle bulk and tone normal bilateral structural exam on the left is grossly normal no angular lower leg ankle deformity no hindfoot varus valgus, arch largely maintained, no midfoot forefoot alignment abnormalities, normal ranges of motion of ankle subtalar midtarsal and metatarsophalangeal joints. Right lower extremity: Largely similar for lower leg ankle hindfoot midfoot Forefoot demonstrates met primus varus with bunion and hallux valgus that is minimally reducible. There is minimal contact between hallux and second toe and no interdigital lesions identified Range of motion of the right great toe is decreased compared to that of the left but adequate at approximately 40 degrees dorsiflexion and 5 to 10 degrees plantarflexion without crepitus The right second toe is decreased in motion at the proximal interphalangeal joint but otherwise normal at the metatarsal phalangeal joint. Integument: Only significant abnormality which is minor is minor pinch callus at the medial right hallux debrided to normal tissue Nails are entirely normal universally left and right Webs are clear. Weightbearing x-rays taken [id number] demonstrate an intermetatarsal angle of approximately 16.5 degrees, a sesamoid position of 5-6, early degenerative changes at the first MPJ joint, and evidence of old fracture of the base of the proximal phalanx second toe without associated significant degenerative disease of the proximal distal interphalangeal joint or the proximal metatarsal phalangeal joint. Lateral film suggests arch overall maintained Impression: -Hallux valgus right foot with bunion Plan: -Exam -Weightbearing x-rays -Discussed surgical options with patient which include procedures, preop postop recovery weightbearing restrictions, potential complications, however formal surgical consult and consent to be obtained by surgical provider if and when patient decides to move forward. -X-rays reviewed with patient both in terms of technical impression, and visual presentation. Time spent 40 minutes decision-making points: Preparing to see patient reviewing tests obtaining and/or reviewing separate obtained history, performing a medically appropriate examination and/or evaluation, counseling and educating the patient/family/caregiver, ordering medications, tests, or procedures, referring and communicating with other healthcare professionals, documenting critical information in the medical record, independently interpreting results and communicating results and care coordination. Follow-up: As needed if and when patient decides he would like to have surgery. -As part of the service the pertinent primary care, specialty care and urgent care notes have been reviewed as well as the patient's medication list, problem list, and current imaging as well as past imaging, laboratory data and other pertinent contributory consults. -All new and discontinued medications have been discussed in detail with the patient and or caregiver, including indications for additions and deletions, as well as possible side effects, interactions as foreseen, and risk of not taking as prescribed If applicable, the patient was advised clearly on application of wound care agents how to apply and when to apply. The patient was able to recitethis information back to the prescriber with good understanding and agreed to the plan of care as indicated above. -Plan of care discuss with the patient and or caregiver, including medical decision making which includes discussion of abnormal lab results, imaging and other diagnostic modalities as well as results of the physical exam and cisco consultant opinions and recommendations as sought. Alternatives to surgery or outlined care above as appropriate have also been discussed. -The patient/ caregiver has displayed good understanding of above and with no further questions at this time. Patient is aware of next appointment and agrees to follow-up interval. Patient agrees to seek sooner follow up if any irregular events occur in between such as cardinal signs of infection, increased pain or deformity. -The on this visit was given information [employer] service and encouraged to enroll if not already having done so. /hi/ BRITTNI JOY DPM PODIATRY ATTENDING Signed: 09/09/2024 15:25 BRITTNI JOY [place] [facility]
--- OUTSIDE RECORDS SUMMARY | 2025-02-05 04:00 | XMS_ITS ---
Author Name [facility] [place] Address [address], [place] [address] Care Team Providers Care Vice President Of Advertising Name Role Phone JEAN JONES Primary Care [...] PART B Mar 02, 2019 PART B [id number] [phone] ISAMAR FOLEY PATIENT MEDICARE (WNR) MEDICARE (M) PART A Jan 31, 2018 PART A [id number] [phone] RENATO FOLEYINO PATIENT [facility] (WNR) MEDICARE ADVANTAGE [facility] (WNR) Sep 02, 2019 [facility] [id number] RENATO FOLEYINO PATIENT [facility] (WNR) MEDICARE ADVANTAGE [facility](W NR) Sep 02, 2019 [facility] [id number] ISAMAR FOLEY PATIENT Selected Encounter This section includes the information on record at [place] for the Encounter. Date/Time Encounter Type Encounter Description Reason Provider Source Feb 05, 2025 08:00 AM OFFICE O/P EST LOW 20 MIN PRIMARY CARE/MEDICINE ICD-10-CM M54.50 Low back pain, unspecified JEAN JONES [facility] Encounter Template Text not used by [place] Assessments - Encounter Diagnoses This section includes the primary and secondary diagnoses documented for the Encounter. Date/Time Primary/Secondary Diagnosis Diagnosis Name Provider Source Feb 05, 2025 08:33 AM PRIMARY Low back pain, unspecified JEAN JONES [place] [facility] [place] [facility] Feb 05, 2025 08:33 AM SECONDARY Encounter for immunization AYDEN FOWLER Eddie Ana Maria [place] [facility] [facility] [place] [facility] Feb 05, 2025 08:33 AM SECONDARY Other microscopic hematuria [facility] Plan of Treatment: Future Appointments (+ 6 months) and Future Tests (+/- 45 days) The Plan of Treatment section includes future care activities for the patient from all [place] [facility]. This section includes future appointments and future orders which are active, pending or scheduled. Future Appointments This section includes appointments that were scheduled to occur 6 months from the date of the Encounter, up to a maximum of 20 appointments. The data comes from all [place] treatment facilities. Appointment Date/Time Appointment Type Appointme nt Facility Name Feb 22, 2025 02:30 PM AMBULATORY - SURGERY [place] [facility] [place] [facility] Mar 18, 2025 10:00 AM AMBULATORY - REHAB MEDICIN E [place] [facility] [place] [facility] Mar 22, 2025 09:15 AM AMBULATORY - MEDICINE [place] [facility] [facility] Apr 07, 2025 10:00 AM AMBULATORY - MEDICINE [place] [facility] Apr 09, 2025 10:00 AM AMBULATORY - [place]ICINE [place] [facility] Apr 29, 2025 10:30 AM AMBULATORY - [place]ICINE [place] [facility] Jun 16, 2025 08:30 AM AMBULATORY - [place]ICINE [place] [facility] Active, Pending, and Scheduled Orders This section includes a listing of several types of active, pending, and scheduled orders, including clinic medications orders, diagnostic test orders, procedure orders and consult orders; where the start date of the order is 45 days before the date of the Encounter or 45 days after the date of theEncounter. The data comes from all [place] treatment facilities. Test Date/Time Test Type Test Details Facility Name Feb 08, 2025 04:44 PM Consult Order COMMUNITY CARE-UROLOGY Cons Urology Physician's Choice [facility] Lab Results: +/- 30 days of the encounter This section includes the Chemistry and Hematology Lab Results on record with [place] for the patient. Radiology Reports and Pathology Reports are provided separately, in subsequent sections. Lab Results This section contains the Chemistry/Hematology Results that were resulted 30 days before or 30 daysafter the date of the Encounter. Date/Time Source Result Type Result - Unit Interpretation Reference Range Specimen Type Comment Feb 05, 2025 08:40 AM [facility] MICROSCOPIC AUTOMATED, URINE URINE Specimen T ype: URINE Comment: If Glucose = >500 and Ketones are positive, please alert the Physician. Ordering Provider: JEAN JONES Report Released Date/Time: Feb 05, 2025 08:27 AM Reporting Lab: [address] [address] Performing Lab: [address] [address] UA WBC 0-5 /[HPF] 0-5 UA BACTERIA 1+ /[HPF] NoneObs UA MUCUS FEW /[LPF] Trace UA HYALINE CASTS 2-4 /[LPF] 0-2 UA RBC 6-10 /[HPF] H 0-3 Feb 05, 2025 08:40 AM [facility] URINALYSIS CLEAN CATCH URINE Specimen Type: U RINE Comment: If Glucose = >500 and Ketones are positive, please alert the Physician. Ordering Provider: JEAN JONES Report Released Date/Time: Feb 05, 2025 08:27 AM Reporting Lab: [address] [address] Performing Lab: [address] [address] UA COLOR Yellow Yellow UA APPEARANCE Clear Clear UA GLUCOSE Normal mg/dL Negative UA KETONES NEGATIVE mg/dL Negative UA BLOOD NEGATIVE mg/dL Negative UA PROTEIN 50 mg/dL Negative UA NITRITE NEGATIVE mg/dL Negative UA BILIRUBIN NEGATIVE mg/dL Negative UA SPECIFIC GRAVITY 1.029 H 1.016-1.022 UA pH 5.5 5.0-9.0 UA UROBILINOGEN Normal mg/dL <2.0 UA LEUKOCYTE NEGATIVE Negative Feb 04, 2025 07:59 AM [facility] BASIC METABOLIC PANEL (fasting) SERUM Specime n Type: SERUM No comment entered. Ordering Provider: JEAN JONES Report Released Date/Time: January 23, 2025 05:03 PM Reporting Lab: [address] [address] Performing Lab: [address] [address] UREA NITROGEN 15 mg/dL 8-26 GLUCOSE 111 mg/dL H 65-100 SODIUM 139 mmol/L 136-145 POTASSIUM 4.3 mmol/L 3.5-5.1 CHLORIDE 104 mmol/L 98-107 CO2 26 meq/L 23-31 CALCIUM 9.3 mg/dL 8.8-10 CREATININE, Serum 1.05 mg/dL 0.72-1.25 eGFR(CKD-EPI 2020) 75 mL/min >60 Feb 04, 2025 07:59 AM [facility] LIPID PANEL FASTING SERUM Specimen Type: SERU M No comment entered. Ordering Provider: JEAN JONES Report Released Date/Time: January 23, 2025 05:03 PM Reporting Lab: [address] [address] Performing Lab: [address] [address] CHOLESTEROL 135 mg/dL TRIGLYCERIDE 114 mg/dL 0-150 LDL calculated 63 mg/dL 0-129 CHOL/HDL 2.8 HDL CHOLESTEROL 49 mg/dL >40 Feb 04, 2025 07:59 AM [facility] LIVER FUNCTION SERUM Specimen Type: SERUM No comment entered. Ordering Provider: JEAN JONES Report Released Date/Time: January 23, 2025 05:03 PM Reporting Lab: [address] [address] Performing Lab: [facility] [address] [facility] [address] PROTEIN,TOTAL 7.3 g/dL 6.4-8.3 ALBUMIN 4.7 g/dL H 3.2-4.6 ALKALINE PHOSPHATASE 86 U/L 40-150 AST 30 U/L 5-34 ALT 35 U/L 0-55 BILIRUBIN, TOTAL 1.6 mg/dL H 0.2-1.2 BILIRUBIN, DIRECT 0.4 mg/dL 0-0.5 Feb 04, 2025 07:59 AM [facility] TSH SERUM Specimen Type: SERUM No comment entered. Ordering Provider: JEAN JONES Report Released Date/Time: January 23, 2025 05:03 PM Reporting Lab: [facility] [address] [facility] [address] Performing Lab: [address] [address] TSH 0.68 u[IU]/mL 0.35-4.94 Feb 04, 2025 07:59 AM [facility] CBC AND DIFF (AUTO) BLOOD Specimen Type: BLOO D No comment entered. Ordering Provider: JEAN JONES Report Released Date/Time: January 23, 2025 05:03 PM Reporting Lab: [address] [address] Performing Lab: [address] [address] WBC 6.09 10*3/uL 4.50-11.00 RBC 5.48 10*6/uL 4.23-5.66 HGB 15.1 g/dL 12.8-17 HCT 45.9 39.2-50.4 MCV 83.8 fL 82-99 MCHC 32.9 g/dL 30.8-35.1 PLT 195 10*3/uL 140-360 MPV 10.0 fL 9.2-12.4 RDW-CV 13.7 12.0-16.0 MONO, ABS 0.51 10*3/uL 0.30-1.10 MCH 27.6 pg 26.2-32.6 NEUT % 68.3 43.7-75.8 LYMPH % 20.7 14.0-42.3 MONO % 8.4 5.1-13.7 EOS % 2.0 0.4-6.8 BASO % 0.3 0.1-2.0 NEUT, ABS 4.16 10*3/uL 2.20-7.60 LYMPH, ABS 1.26 10*3/uL 1.00-3.20 EOS, ABS 0.12 10*3/uL 0.03-0.44 BASO, ABS 0.02 10*3/uL 0.01-0.13 IMMATURE GRAN % 0.3 0.0-0.7 IMMATURE GRAN, ABS 0.02 10*3/uL 0.00-0.0 6 NRBC % 0.0 0.0-0.0 NRBC, ABS 0.00 10*3/uL 0.00-0.00 Feb 04, 2025 07:59 AM [facility] MICROSCOPIC AUTOMATED, URINE URINE Specimen T ype: URINE Comment: If Glucose = >500 and Ketones are positive, please alert the Physician. Ordering Provider: JEAN JONES Report Released Date/Time: January 23, 2025 05:03 PM Reporting Lab: [address] [address] Performing Lab: [address] [address] UA WBC 0-5 /[HPF] 0-5 UA MUCUS FEW /[LPF] Trace UA RBC 3-5 /[HPF] 0-3 UA SQUAMOUS EPITH FEW /[HPF] Feb 04, 2025 07:59 AM [facility] URINALYSIS CLEAN CATCH URINE Specimen Type: U RINE Comment: If Glucose = >500 and Ketones are positive, please alert the Physician. Ordering Provider: JEAN JONES Report Released Date/Time: January 23, 2025 05:03 PM Reporting Lab: [facility] [address] [facility] [address] Performing Lab: [address] [address] UA COLOR Yellow Yellow UA APPEARANCE Clear Clear UA GLUCOSE Normal mg/dL Negative UA KETONES NEGATIVE mg/dL Negative UA BLOOD SMALL mg/dL Negative UA PROTEIN 50 mg/dL Negative UA NITRITE NEGATIVE mg/dL Negative UA BILIRUBIN NEGATIVE mg/dL Negative UA SPECIFIC GRAVITY 1.028 H 1.016-1.022 UA pH 5.5 5.0-9.0 UA UROBILINOGEN Normal mg/dL <2.0 UA LEUKOCYTE NEGATIVE Negative Vital Signs: All taken on the encounter date This section contains inpatient and outpatient Vital Signs collected on the date of the Encounter. Date/Time Temperature Pulse Blood Pressure Respiratory Rate SP02 Pain Height Weight Body Mass Index Source Feb 05, 2025 07:58 AM 97.8 F 93 /min 136/78 mm[Hg] 16 /min 96 % 9 64 in 206 lb [facility] Immunizations: All administered on the encounter date This section contains immunizations associated to the Encounter. Immunization Series Date Issued Administered By Site Reaction Lot Number CVX Code Drug Clinical Dietetic Technician Comment(s) Source TDAP Feb 05, 2025 AYDEN FOWLER LEFT DELTO ID [id number] [facility]OCK Completed Series, [facility] Social History: Smoking Status (Most current) and Tobacco Use (All prior to encounter date) This section includes the most current, and the historical, smoking and tobacco- related health factors from the [place] facility where the Encounter took place. Current Smoking Status This section includes the most current smoking, or tobacco-related health factor, from the [place] facility where the Encounter took place. Date/Time Current Smoking Status Comment Rafia davis Feb 03, 2024 11:00 AM [facility]-TO[facility]ACCO [facility] US[facility] Tobacco Use History This section includes a history of the smoking, or tobacco-related health factors, that were collected on or before the date of the Encounter. The data comes from the [place] facility where the Encounter took place. Date/Time Smoking Status/Tobacco Use Comment Pat mars January 25, 2023 11:00 AM VA-TOBACCO NEVER USED [place] [facility] January 22, 2022 08:30 AM [facility]AC[facility]ED [facility] January 10, 2021 09:00 AM [facility]TOBACCO [facility] USED [facility] Dec 08, 2019 09:25 AM VA-TOBACCO NEVER USED [facility] Nov 17, 2018 09:09 AM [facility]-TOBACCO [facility] USED [facility] Jun 19, 2017 11:17 AM LIFETIME NON-TOBACCO USER [facility] May 17, 2016 10:41 AM LIFETIME NON-TOBACCO USER [facility] May 06, 2015 09:03 AM LIFETIME NON-TOBACCO USER [facility] Pathology Reports: +/- 30 days of the encounter Pathology Reports For cases when an order for pathology services may have been completed prior to the date of the Encounter, the report list includes the Pathology Reports that were completed up to 30 days before dateof the Encounter. For cases when an order for pathology services may have been completed after the date of the Encounter, the report list also includes the Pathology Reports that were completed up to30 days after date of the Encounter. The data comes from all [facility] facilities. Date/Time Pathology Report Provider Source Feb 05, 2025 08:40 AM LR MICROBIOLOGY RE PORT: Reporting Lab: [facility] [CLIA# [id number]] [address] [place] [id number] Accession [UID]: [id number] [[id number]] Received: Feb 05, 2025@08:41 Collection sample: URINE CLEAN CATCH Collection date: Feb 05, 2025 08:40 Site/Specimen: URINE Provider: JEAN JONES Test(s) ordered: URINE CULTURE(MWROX).......... completed: Feb 08, 2025 13:05 * BACTERIOLOGY FINAL REPORT => Feb 08, 2025 13:05 TECH CODE: [id number] Bacteriology Remark(s): NO GROWTH IN 24 HOURS, FINAL REPORT TO FOLLOW. FINAL AEROBIC REPORT: NO GROWTH =--=--=--=--=--=--=--=-- =--=--=--=--=--=--=--=-- =--=--=--=--=--=--=--=-- =--=-- Performing Laboratory: Bacteriology Report Performed By: [facility] [CLIA# [id number]] [address] [place] [address] ODESSA CARSON [place] [facility] [facility] [facility] Encounter Notes: All associated encounter notes This section contains the clinical notes associated to the Encounter. Date/Time Encounter Note(s) Provider Source Feb 05, 2025 08:28 AM PHYSICIAN NOTE: LOCAL TITLE: MD NOTE STANDARD TITLE: PHYSICIAN NOTE DATE OF NOTE: FEB 05, 2025@08:28 ENTRY DATE: FEB 05, 2025@08:28:48 AUTHOR: JEAN JONES EXP COSIGNER: URGENCY: STATUS: COMPLETED Patient Name: ISAMAR FOLEY VITALS: Patient temperature: 97.8 F [36.6 C] (02/05/2025 07:58) Blood pressure: 136/78 (02/05/2025 07:58) Patient height: 64 in [162.6 cm] (02/05/2025 07:58) Patient weight: 206 lb [93.44 kg] (02/05/2025 07:58) Patient BMI: BMI: 35.4 Patient pulse: 93 (02/05/2025 07:58) Patient respiration: 16 (02/05/2025 07:58) Patient Pulse Oximetry: 96% (02/05/2025 07:58) Pain Ratin (02/05/2025 07:58) Active [facility] Medications: Active Outpatient Medications (including Supplies): Active Outpatient Medications Status 1) CARBOXYMETHYLCELLULOSE NA 0.5% OPH SOLN INSTILL 1 DROP INTO ACTIVE EACH EYE FOUR TIMES DAILY NEEDED Indication: FOR DRY EYE Active Non-VA Medications Status 1) Non-VA MULTIVITAMIN/MINERALS CAP/TAB 1 TABLET BY MOUTH ONCE ACTIVE DAILY 2 Total Medications Remote Medications: No Active 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 No numbness, weakness, paresthesias, urinary incontinence, fecal incontinence or difficulty with ambulation. No blunt trauma. Patient says it began after he was moving furniture at home. He does have a history of lumbosacral back aching. 2017 x-rays LS spine showed multiple levels of osteoarthritis. Physical therapy has been worthwhile in the past. No relief recently from Icy[employer] OTC Social history No history of tobacco Physical examination Well-developed well-nourished male no acute distress Coronary no murmur Lungs clear Back no deformity or tenderness Normal motor and gait WBC/HPF: 0-5 RBC/HPF: 3-5 MUCUS: FEW SQUAMOUS EPITHELIAL: FEW Color, Urine (AX 4280): Yellow Appearance, Urine (AX 4280): Clear Glucose, Urine (AX 4280): Normal Ketones, Urine (AX 4280): NEGATIVE Blood, Urine (AX 4280): SMALL Protein, Urine (AX 4280): 50 Nitrite, Urine (AX 4280): NEGATIVE Bilirubin, Urine (AX 4280): NEGATIVE Specific [place], (AX 4280): 1.028 H pH, Urine (TT0695): 5.5 Urobilinogen, Urine (AX 4280): Normal Leukocyte Esterase, (AX 4280): NEGATIVE TSH (Access): 0.68 GLUCOSE: 111 H UREA NITROGEN: 15 SODIUM: 139 POTASSIUM: 4.3 CHLORIDE: 104 CO2: 26 CALCIUM: 9.3 CHOLESTEROL: 135 PROTEIN,TOTAL: 7.3 ALBUMIN: 4.7 H ALKALINE PHOSPHATASE: 86 SGOT: 30 SGPT: 35 TRIGLYCERIDE: 114 LDL CHOL: 63 CHOL/HDL RATIO: 2.8 HDL: 49 BILIRUBIN,TOT.: 1.6 H BILIRUBIN,DIR.: 0.4 CREATININE-EGFR: 1.05 eGFR CKD-EPI 2020: 75 WBC: 6.09 RBC: 5.48 HGB: 15.1 HCT: 45.9 MCV: 83.8 MCHC: 32.9 RDW: 13.7 PLT: 195 MPV: 10.0 MCH: 27.6 Neut %: 68.3 Lymph %: 20.7 [place] %: 8.4 Eos %: 2.0 Baso %: 0.3 Neut, Abs: 4.16 Lymph, Abs: 1.26 [place], Abs: 0.51 Eos, Abs: 0.12 Baso, Abs: 0.02 Immature Granulocytes %: 0.3 Immature Granulocytes, Abs: 0.02 NRBC%: 0.0 NRBC#: 0.00 I discussed above test results with patient Assessment and plan: 1. Back pain: No acute neurologic deficit. Plan: Restart physical therapy Consider MRI if no response to above 2. Microscopic hematuria: patient said urine sample was clean-catch. 2017 urology evaluation negative including cystoscopy Planned repeat urinalysis and culture today Follow-up 6 months clinic visit and lab Patient had covid disease 1 month ago, will get vaccine in 2 months. Medication Reconciliation: Outpatient: Has the patient been taking medications as documented in the EMLR? YES: The patient has been taking medications as documented in the EMLR. Essential Medication List for Review used to complete this medication reconciliation. INCLUDED IN THIS LIST: Alphabetical list of active outpatient prescriptions dispensed from this [facility] (local) and dispensed from another [place] or [place] facility (remote) as well as [...] whether with a VA or non-VA provider. /es/ Jean Jones MD Staff Physician Signed: 02/05/2025 08:33 JEAN JONES [place] [facility] [place] [facility] Feb 05, 2025 08:06 AM PREVENTIVE MEDICINE NURSING NOTE: LOCAL TITLE: CLINICAL REMINDERS/NURSING STANDARD TITLE: PREVENTIVE MEDICINE NURSING NOTE DATE OF NOTE: FEB 05, 2025@08:06 ENTRY DATE: FEB 05, 2025@08:06:13 AUTHOR: TERRA FOWLER EXP COSIGNER: URGENCY: STATUS: COMPLETED CLINICAL REMINDERS/NURSING Has ADDENDA HIV Screening: HIV Testing was done outside of this facility: HIV test was negative. DATE: Month/Year May/2009 Influenza Immunization: No influenza vaccination was received during the recent influenza season. RHS Screen: RHS Screen Session Format: Face to Face Environmental Check Upon inquiry, the individual reports that the environment is safe to proceed. Informed Consent to Screen and Document The individual consents to proceed with screening. The individual consents to documentation of responses. PRIMARY SCREEN: In the past 12 months, how often did a current or former intimate partner (e.g., boyfriend, girlfriend, , , sexual partner): 1. Scream or curse at you Never 2. Insult or talk down to you Never 3. Threaten you with harm Never 4. Physically hurt you Never 5. Force or pressure you to have sexual contact against your will, or when you were unable to say no Never The HITS tool (items 1-4 above) is [place] copyright protected by Antonio Forbes MD, and the user has full rights to use it throughout the [place] system. PRIMARY SCREEN RESULT: The Primary Screen is NEGATIVE. The individual answered never to all forms of IPV above (i.e., answered never to all 5 items) The individual accepts education and/or resources: Other: n/a EDUCATION: Other: n/a /hi/ TERRA FOWLER LPN LPN Signed: 02/05/2025 08:11 02/05/2025 ADDENDUM STATUS: COMPLETED Td/Tdap Immunization: Administered: TDAP Date Administered: Feb 05, 2025 08:00 Series: Complete Clinical Dietetic Technician: [email or web address] Lot: [id number] Exp Date: Apr 27, 2027 [facility]: [phone] Admin Route/Site: INTRAMUSCULAR/LEFT DELTOID Dosage: 0.5mL Vaccine Information Statement(s): TDAP (TETANUS, DIPHTHERIA, PERTUSSIS) VACCINE VIS Oct 02, 2024 ([place]) Order By: Policy Administered By: Terra Fowler The TETANUS/DIPHTHERIA/PERTUSSIS (TDAP) Vaccine Information Statement (VIS) was reviewed with the patient/caregiver which lists the benefits and risks of the vaccine and the risks of not receiving the Tdap vaccine. The patient/caregiver denied any prior severe reaction to this vaccine or its components or a severe allergic reaction, such as anaphylaxis, to any vaccine or any injectable therapy. The patient/caregiver gave verbal consent to receive the vaccine. /hi/ TERRA FOWLER LPN LPN Signed: 02/05/2025 14:05 TERRA FOWLER [facility]
--- OUTSIDE RECORDS SUMMARY | 2025-02-22 10:30 | XMS_ITS | Encounter Summary ---
Author Name [facility] [place] [facility] [place] Address [address] [place] [address] Care Team Providers Care C Winforms Developer Name Role Phone ALBERTO JULIAN Primary Care [...] PART B Mar 02, 2019 PART B [id number] RENATO FOLEYINO PATIENT MEDICARE (WNR) MEDICARE (M) PART A Jan 31, 2018 PART A [id number] [phone] OGISAMAR PATIENT [facility] (WNR) MEDICARE ADVANTAGE [facility] (WNR) Sep 02, 2019 [facility] [id number] RENATO FOLEYINO PATIENT [facility] (WNR) MEDICARE ADVANTAGE [facility](W NR) Sep 02, 2019 [facility] [id number] ISAMAR FOLEY PATIENT Selected Encounter This section includes the information on record at [place] for the Encounter. Date/Time Encounter Type Encounter Description Reason Provider Source Feb 22, 2025 02:30 PM RPR&REFITG SPECT XCP APHAKIA OPTOMETRY ICD-10-CM Z46.0 Encounter for fit/adjst of spectacles and contact lenses ADONIS ANTHONY [facility] Encounter Template Text not used by [place] Assessments - Encounter Diagnoses This section includes the primary and secondary diagnoses documented for the Encounter. Date/Time Primary/Secondary Diagnosis Diagnosis Name Provider Source Feb 22, 2025 02:30 PM PRIMARY Encounter for fit/adjst of spectacles and contact lenses ADONIS ANTHONY [facility] [place] [facility] Plan of Treatment: Future Appointments (+ 6 months) and Future Tests (+/- 45 days) The Plan of Treatment section includes future care activities for the patient from all [place] [facility] This section includes future appointments and future orders which are active, pending or scheduled. Future Appointments This section includes appointments that were scheduled to occur 6 months from the date of the Encounter, up to a maximum of 20 appointments. The data comes from all [facility]. Appointment Date/Time Appointment Type Appointme nt Facility Name Mar 18, 2025 10:00 AM AMBULATORY - REHAB MEDICIN E [place] [facility] [place] [facility] Mar 22, 2025 09:15 AM AMBULATORY - MEDICINE [facility] [place] [facility] Apr 07, 2025 10:00 AM AMBULATORY - MEDICINE [facility] [place] [facility] Apr 09, 2025 10:00 AM AMBULATORY MEDICINE AL C [facility] [place] [facility] Apr 29, 2025 10:30 AM AMBULATORY - MEDICINE AL C [facility] [place] [facility] Jun 16, 2025 08:30 AM AMBULATORY - MEDICINE [facility] [place] [facility] Aug 11, 2025 10:30 AM AMBULATORY MEDICINE [facility] [place] [facility] Active, Pending, and Scheduled Orders This section includes a listing of several types of active, pending, and scheduled orders, including clinic medications orders, diagnostic test orders, procedure orders and consult orders; where the start date of the order is 45 days before the date of the Encounter or 45 days after the date of theEncounter. The data comes from all [place] treatment [facility]. Test Date/Time Test Type Test Details Facility Name Feb 08, 2025 04:44 PM Consult Order [facility]-UROLOGY Cons Renal Nurse's Choice [facility] Lab Results: +/- 30 days of the encounter This section includes the Chemistry and Hematology Lab Results on record with [place] for the patient. Radiology Reports and Pathology Reports are provided separately, in subsequent sections. Lab Results This section contains the Chemistry/Hematology Results that were resulted 30 days before or 30 daysafter the date of the Encounter. Date/Time Source Result Type Result - Unit Interpretation Reference Range Specimen Type Comment Feb 05, 2025 08:40 AM [facility] MICROSCOPIC AUTOMATED, URINE URINE Specimen T ype: URINE Comment: If Glucose = >500 and Ketones are positive, please alert the Physician. Ordering Provider: ALBERTO JULIAN Report Released Date/Time: Feb 05, 2025 08:27 AM Reporting Lab: [facility] [address] [facility] [address] Performing Lab: [facility] [address] [facility] [address] UA WBC 0-5 /[HPF] 0-5 UA BACTERIA 1+ /[HPF] NoneObs UA MUCUS FEW /[LPF] Trace UA HYALINE CASTS 2-4 /[LPF] 0-2 UA RBC 6-10 /[HPF] H 0-3 Feb 05, 2025 08:40 AM [facility] URINALYSIS CLEAN CATCH URINE Specimen Type: U RINE Comment: If Glucose = >500 and Ketones are positive, please alert the Physician. Ordering Provider: ALBERTO JULIAN Report Released Date/Time: Feb 05, 2025 08:27 AM Reporting Lab: [facility] [address] [facility] [address] Performing Lab: [address] [address] UA COLOR Yellow Yellow UA APPEARANCE Clear Clear UA GLUCOSE Normal mg/dL Negative UA KETONES NEGATIVE mg/dL Negative UA BLOOD NEGATIVE mg/dL Negative UA PROTEIN 50 mg/dL Negative UA NITRITE NEGATIVE mg/dL Negative UA BILIRUBIN NEGATIVE mg/dL Negative UA SPECIFIC GRAVITY 1.029 H 1.016-1.022 UA pH 5.5 5.0-9.0 UA UROBILINOGEN Normal mg/dL <2.0 UA LEUKOCYTE NEGATIVE Negative Feb 04, 2025 07:59 AM [facility] LIVER FUNCTION SERUM Specimen Type: SERUM No comment entered. Ordering Provider: ALBERTO JULIAN Report Released Date/Time: January 23, 2025 05:03 PM Reporting Lab: [address] [address] Performing Lab: [address] [address] PROTEIN,TOTAL 7.3 g/dL 6.4-8.3 ALBUMIN 4.7 g/dL H 3.2-4.6 ALKALINE PHOSPHATASE 86 U/L 40-150 AST 30 U/L 5-34 ALT 35 U/L 0-55 BILIRUBIN, TOTAL 1.6 mg/dL H 0.2-1.2 BILIRUBIN, DIRECT 0.4 mg/dL 0-0.5 Feb 04, 2025 07:59 AM [facility] BASIC METABOLIC PANEL (fasting) SERUM Specime n Type: SERUM No comment entered. Ordering Provider: ALBERTO JULIAN Report Released Date/Time: January 23, 2025 05:03 PM Reporting Lab: [address] [address] Performing Lab: [address] [address] UREA NITROGEN 15 mg/dL 8-26 GLUCOSE 111 mg/dL H 65-100 SODIUM 139 mmol/L 136-145 POTASSIUM 4.3 mmol/L 3.5-5.1 CHLORIDE 104 mmol/L 98-107 CO2 26 meq/L 23-31 CALCIUM 9.3 mg/dL 8.8-10 CREATININE, Serum 1.05 mg/dL 0.72-1.25 eGFR(CKD-EPI 2020) 75 mL/min >60 Feb 04, 2025 07:59 AM [facility] LIPID PANEL FASTING SERUM Specimen Type: SERU M No comment entered. Ordering Provider: ALBERTO JULIAN Report Released Date/Time: January 23, 2025 05:03 PM Reporting Lab: [address] [place] [address] Performing Lab: [facility] [address] [facility] [address] CHOLESTEROL 135 mg/dL TRIGLYCERIDE 114 mg/dL 0-150 LDL calculated 63 mg/dL 0-129 CHOL/HDL 2.8 HDL CHOLESTEROL 49 mg/dL >40 Feb 04, 2025 07:59 AM [facility] TSH SERUM Specimen Type: SERUM No comment entered. Ordering Provider: ALBERTO JULIAN Report Released Date/Time: January 23, 2025 05:03 PM Reporting Lab: [facility] [address] [facility] [address] Performing Lab: [facility] [address] [facility] [address] TSH 0.68 u[IU]/mL 0.35-4.94 Feb 04, 2025 07:59 AM [facility] MICROSCOPIC AUTOMATED, URINE URINE Specimen T ype: URINE Comment: If Glucose = >500 and Ketones are positive, please alert the Physician. Ordering Provider: ALBERTO JULIAN Report Released Date/Time: January 23, 2025 05:03 PM Reporting Lab: [facility] [address] [facility] [address] Performing Lab: [facility] [address] [facility] [address] UA WBC 0-5 /[HPF] 0-5 UA MUCUS FEW /[LPF] Trace UA RBC 3-5 /[HPF] 0-3 UA SQUAMOUS EPITH FEW /[HPF] Feb 04, 2025 07:59 AM [facility] CBC AND DIFF (AUTO) BLOOD Specimen Type: BLOO D No comment entered. Ordering Provider: ALBERTO JULIAN Report Released Date/Time: January 23, 2025 05:03 PM Reporting Lab: [facility] [address] [facility] [address] Performing Lab: [address] [address] WBC 6.09 10*3/uL 4.50-11.00 RBC 5.48 10*6/uL [...] 10*3/uL 0.00-0.00 Feb 04, 2025 07:59 AM [facility] URINALYSIS CLEAN CATCH URINE Specimen Type: U RINE Comment: If Glucose = >500 and Ketones are positive, please alert the Physician. Ordering Provider: ALBERTO JULIAN Report Released Date/Time: January 23, 2025 05:03 PM Reporting Lab: [facility] [address] [facility] [address] Performing Lab: [address] [address] UA COLOR Yellow Yellow UA APPEARANCE Clear Clear UA GLUCOSE Normal mg/dL Negative UA KETONES NEGATIVE mg/dL Negative UA BLOOD SMALL mg/dL Negative UA PROTEIN 50 mg/dL Negative UA NITRITE NEGATIVE mg/dL Negative UA BILIRUBIN NEGATIVE mg/dL Negative UA SPECIFIC GRAVITY 1.028 H 1.016-1.022 UA pH 5.5 5.0-9.0 UA UROBILINOGEN Normal mg/dL <2.0 UA LEUKOCYTE NEGATIVE Negative Social History: Smoking Status (Most current) and Tobacco Use (All prior to encounter date) This section includes the most current, and the historical, smoking and tobacco- related health factors from the [place] facility where the Encounter took place. Current Smoking Status This section includes the most current smoking, or tobacco-related health factor, from the [place] facility where the Encounter took place. Date/Time Current Smoking Status Comment Facil ity Feb 03, 2024 11:00 AM VA-TOBACCO NEVER USED [place] [facility] [place] [facility] Tobacco Use History This section includes a history of the smoking, or tobacco-related health factors, that were collected on or before the date of the Encounter. The data comes from the [place] facility where the Encounter took place. Date/Time Smoking Status/Tobacco Use Comment F acility January 25, 2023 11:00 AM VA-TOBACCO NEVER USED [facility] [place] [facility] January 22, 2022 08:30 AM VA-TOBACCO NEVER USED [facility] [place] [facility] January 10, 2021 09:00 AM VA-TOBACCO NEVER USED [facility] [place] [facility] Dec 08, 2019 09:25 AM VA-TOBACCO NEVER USED [facility] [facility] Nov 17, 2018 09:09 AM VA-TOBACCO NEVER USED [facility] [place] [facility] Jun 19, 2017 11:17 AM LIFETIME NON-TOBACCO USER [facility] [place] [facility] May 17, 2016 10:41 AM LIFETIME NON-TOBACCO USER [facility] [place] [facility] May 06, 2015 09:03 AM LIFETIME NON-TOBACCO USER [place] [facility] [place] [facility] Pathology Reports: +/- 30 days of [...] the Encounter. The data comes from all [place] treatment facilities. Date/Time Pathology Report Provider Source Feb 05, 2025 08:40 AM LR MICROBIOLOGY RE PORT: Reporting Lab: [facility] [CLIA# [id number]] [address] [place] [address] Accession [UID]: [id number] [[id number]] Received: Feb 05, 2025@08:41 Collection sample: URINE CLEAN CATCH Collection date: Feb 05, 2025 08:40 Site/Specimen: URINE Provider: ALBERTO JULIAN Test(s) ordered: URINE CULTURE(MWROX).......... completed: Feb 08, 2025 13:05 * BACTERIOLOGY FINAL REPORT => Feb 08, 2025 13:05 TECH CODE: [id number] Bacteriology Remark(s): NO GROWTH IN 24 HOURS, FINAL REPORT TO FOLLOW. FINAL AEROBIC REPORT: NO GROWTH =--=--=--=--=--=--=--=-- =--=--=--=--=--=--=--=-- =--=--=--=--=--=--=--=-- =--=-- Performing Laboratory: Bacteriology Report Performed By: [facility] [CLIA# [id number]] [address] [place] [address] ODESSA CARSON [facility]
--- OUTSIDE RECORDS SUMMARY | 2025-03-04 09:47 | XMS_ITS ---
Author Name [facility] [place] [facility] [place] Address [address] [place] [address] Care Team Providers Care Proof Tester Name Role Phone JEAN JONES Primary Care [...] PART B Mar 02, 2019 PART B [id number] ISAMAR FOLEY PATIENT MEDICARE (WNR) MEDICARE (M) PART A Jan 31, 2018 PART A [id number] RENATO FOLEYINO PATIENT [facility] (WNR) MEDICARE ADVANTAGE [facility] (WNR) Sep 02, 2019 [facility] [id number] ISAMAR FOLEY PATIENT [facility] (WNR) MEDICARE ADVANTAGE [facility](W NR) Sep 02, 2019 [facility] [id number] RENATO FOLEYINO PATIENT Selected Encounter This section includes the information on record at [place] for the Encounter. Date/Time Encounter Type Encounter Description Reason Pro vider Source Mar 04, 2025 01:47 PM Outpatient Encounter COMMUNITY CARE CONSULT IHE Encounter Template Text not used by [place] Plan of Treatment: Future Appointments (+ 6 months) and Future Tests (+/- 45 days) The Plan of Treatment section includes future care activities for the patient from [facility] [place] [facility] This section includes future appointments and future orders which are active, pending or scheduled. Future Appointments This section includes appointments that were scheduled to occur 6 months from the date of the Encounter, up to a maximum of 20 appointments. The data comes from all [facility]. Appointment Date/Time Appointment Type Appointme nt Facility Name Mar 18, 2025 10:00 AM AMBULATORY - REHAB MEDICIN E [place] [facility] [place] [facility] Mar 22, 2025 09:15 AM AMBULATORY - MEDICINE MT C [facility] [place] [facility] Apr 07, 2025 10:00 AM AMBULATORY MEDICINE MT C [facility] [place] [facility] Apr 09, 2025 10:00 AM AMBULATORY MEDICINE MT C [facility] [place] [facility] Apr 29, 2025 10:30 AM AMBULATORY - MEDICINE [place] C [facility] [place] [facility] Jun 16, 2025 08:30 AM AMBULATORY - MEDICINE MT C [facility] [place] [facility] Aug 11, 2025 10:30 AM AMBULATORY MEDICINE MT C [facility] [place] [facility] Active, Pending, and Scheduled Orders This section includes a listing of several types of active, pending, and scheduled orders, including clinic medications orders, diagnostic test orders, procedure orders and consult orders; where the start date of the order is 45 days before the date of the Encounter or 45 days after the date of theEncounter. The data comes from all [facility]. Test Date/Time Test Type Test Details Facility Name Feb 08, 2025 04:44 PM Consult Order COMMUNITY CARE-UROLOGY Cons Communications Maintainer's Choice [place] [facility] [facility] Lab Results: +/- 30 days of the encounter This section includes the Chemistry and Hematology Lab Results on record with [place] for the patient. Radiology Reports and Pathology Reports are provided separately, in subsequent sections. Lab Results This section contains the Chemistry/Hematology Results that were resulted 30 days before or 30 daysafter the date of the Encounter. Date/Time Source Result Type Result - Unit Interpretation Reference Range Specimen Type Comment Feb 05, 2025 08:40 AM [facility] MICROSCOPIC AUTOMATED, URINE URINE Specimen T ype: URINE Comment: If Glucose = >500 and Ketones are positive, please alert the Physician. Ordering Provider: JEAN JONES Report Released Date/Time: Feb 05, 2025 08:27 AM Reporting Lab: [facility] [address] [facility] [address] Performing Lab: [facility] [address] [facility] [address] UA WBC 0-5 /[HPF] 0-5 UA BACTERIA 1+ /[HPF] NoneObs UA MUCUS FEW /[LPF] Trace UA HYALINE CASTS 2-4 /[LPF] 0-2 UA RBC 6-10 /[HPF] H 0-3 Feb 05, 2025 08:40 AM [facility] URINALYSIS CLEAN CATCH URINE Specimen Type: U RINE Comment: If Glucose = >500 and Ketones are positive, please alert the Physician. Ordering Provider: JEAN JONES Report Released Date/Time: Feb 05, 2025 08:27 AM Reporting Lab: [facility] [address] [facility] [address] Performing Lab: [address] [address] UA COLOR Yellow Yellow UA APPEARANCE Clear Clear UA GLUCOSE Normal mg/dL Negative UA KETONES NEGATIVE mg/dL Negative UA BLOOD NEGATIVE mg/dL Negative UA PROTEIN 50 mg/dL Negative UA NITRITE NEGATIVE mg/dL Negative UA BILIRUBIN NEGATIVE mg/dL Negative UA SPECIFIC GRAVITY 1.029 H 1.016-1.022 UA pH 5.5 5.0-9.0 UA UROBILINOGEN Normal mg/dL <2.0 UA LEUKOCYTE NEGATIVE Negative Feb 04, 2025 07:59 AM [facility] LIVER FUNCTION SERUM Specimen Type: SERUM No comment entered. Ordering Provider: JEAN JONES Report Released Date/Time: January 23, 2025 05:03 PM Reporting Lab: [facility] [address] [facility] [address] Performing Lab: [address] [place] [address] PROTEIN,TOTAL 7.3 g/dL 6.4-8.3 ALBUMIN 4.7 g/dL H 3.2-4.6 ALKALINE PHOSPHATASE 86 U/L 40-150 AST 30 U/L 5-34 ALT 35 U/L 0-55 BILIRUBIN, TOTAL 1.6 mg/dL H 0.2-1.2 BILIRUBIN, DIRECT 0.4 mg/dL 0-0.5 Feb 04, 2025 07:59 AM [facility] BASIC METABOLIC PANEL (fasting) SERUM Specime n Type: SERUM No comment entered. Ordering Provider: JEAN JONES Report Released Date/Time: January 23, 2025 05:03 PM Reporting Lab: [address] [address] Performing Lab: [address] [address] UREA NITROGEN 15 mg/dL 8-26 GLUCOSE 111 mg/dL H 65-100 SODIUM 139 mmol/L 136-145 POTASSIUM 4.3 mmol/L 3.5-5.1 CHLORIDE 104 mmol/L 98-107 CO2 26 meq/L 23-31 CALCIUM 9.3 mg/dL 8.8-10 CREATININE, Serum 1.05 mg/dL 0.72-1.25 eGFR(CKD-EPI 2020) 75 mL/min >60 Feb 04, 2025 07:59 AM [facility] LIPID PANEL FASTING SERUM Specimen Type: SERU M No comment entered. Ordering Provider: JEAN JONES Report Released Date/Time: January 23, 2025 05:03 PM Reporting Lab: [address] [address] Performing Lab: [address] [address] CHOLESTEROL 135 mg/dL TRIGLYCERIDE 114 mg/dL 0-150 LDL calculated 63 mg/dL 0-129 CHOL/HDL 2.8 HDL CHOLESTEROL 49 mg/dL >40 Feb 04, 2025 07:59 [facility] TSH SERUM Specimen Type: SERUM No comment entered. Ordering Provider: JEAN JONES Report Released Date/Time: January 23, 2025 05:03 PM Reporting Lab: [facility] [address] [facility] [address] Performing Lab: [facility] [address] [facility] [address] TSH 0.68 u[IU]/mL 0.35-4.94 Feb 04, 2025 07:59 AM [facility] MICROSCOPIC AUTOMATED, URINE URINE Specimen T ype: URINE Comment: If Glucose = >500 and Ketones are positive, please alert the Physician. Ordering Provider: JEAN JONES Report Released Date/Time: January 23, 2025 05:03 PM Reporting Lab: [facility] [address] [facility] [address] Performing Lab: [address] [address] UA WBC 0-5 /[HPF] 0-5 UA MUCUS FEW /[LPF] Trace UA RBC 3-5 /[HPF] 0-3 UA SQUAMOUS EPITH FEW /[HPF] Feb 04, 2025 07:59 AM [facility] CBC AND DIFF (AUTO) BLOOD Specimen Type: BLOO D No comment entered. Ordering Provider: JEAN JONES Report Released Date/Time: January 23, 2025 05:03 PM Reporting Lab: [facility] [address] [facility] [address] Performing Lab: [address] [address] WBC 6.09 10*3/uL 4.50-11.00 RBC 5.48 10*6/uL [...] 10*3/uL 0.00-0.00 Feb 04, 2025 07:59 AM [facility] URINALYSIS CLEAN CATCH URINE Specimen Type: U RINE Comment: If Glucose = >500 and Ketones are positive, please alert the Physician. Ordering Provider: JEAN JONES Report Released Date/Time: January 23, 2025 05:03 PM Reporting Lab: [address] [address] Performing Lab: [address] [address] UA COLOR Yellow Yellow UA APPEARANCE Clear [...] and tobacco- related health factors from the [place] facility where the Encounter took place. Current Smoking Status This section includes the most current smoking, or tobacco-related health factor, from the [place] facility where the Encounter took place. Date/Time Current Smoking Status Comment Rafia davis Feb 03, 2024 11:00 AM VA-TOBACCO NEVER USED [facility] Tobacco Use History This section includes a history of the smoking, or tobacco-related health factors, that were collected on or before the date of the Encounter. The data comes from the [place] facility where the Encounter took place. Date/Time Smoking Status/Tobacco Use Comment F acility January 25, 2023 11:00 AM VA-TOBACCO NEVER USED [place] [facility] [facility] January 22, 2022 08:30 AM VA-TOBACCO NEVER USED [place] [facility] [facility] January 10, 2021 09:00 AM VA-TOBACCO NEVER USED MT [facility] [facility] Dec 08, 2019 09:25 AM VA-TOBACCO NEVER USED MT [facility] [facility] Nov 17, 2018 09:09 AM VA-TOBACCO NEVER USED MT [facility] [facility] Jun 19, 2017 11:17 AM LIFETIME NON-TOBACCO USER MT [facility] [facility] May 17, 2016 10:41 AM LIFETIME NON-TOBACCO USER [place] [facility] [facility] May 06, 2015 09:03 AM LIFETIME NON-TOBACCO USER MT [facility] [facility] Pathology Reports: +/- 30 days of the [...] the Encounter. The data comes from all [place] treatment facilities. Date/Time Pathology Report Provider Source Feb 05, 2025 08:40 AM LR MICROBIOLOGY RE PORT: Reporting Lab: [place] [facility] [place] [facility] [CLIA# [id number]] [address] [place] [id number] Accession [UID]: [id number] [[id number]] Received: Feb 05, 2025@08:41 Collection sample: URINE CLEAN CATCH Collection date: Feb 05, 2025 08:40 Site/Specimen: URINE Provider: JEAN JONES Test(s) ordered: URINE CULTURE(MWROX).......... completed: Feb 08, 2025 13:05 * BACTERIOLOGY FINAL REPORT => Feb 08, 2025 13:05 TECH CODE: [id number] Bacteriology Remark(s): NO GROWTH IN 24 HOURS, FINAL REPORT TO FOLLOW. FINAL AEROBIC REPORT: NO GROWTH =--=--=--=--=--=--=--=-- =--=--=--=--=--=--=--=-- =--=--=--=--=--=--=--=-- =--=-- Performing Laboratory: Bacteriology Report Performed By: [facility] [CLIA# [id number]] [address] [place] [address] ODESSA CARSON [facility] Encounter Notes: All associated encounter notes This section contains the clinical notes associated to the Encounter. Date/Time Encounter Note(s) Provider Source Mar 04, 2025 01:47 PM NONVA NOTE: LOCAL TITLE: COMMUNITY CARE-REQUEST FOR SERVICE NOTE STANDARD TITLE: NONVA NOTE DATE OF NOTE: MAR 04, 2025@13:47 ENTRY DATE: MAR 04, 2025@14:00:02 AUTHOR: DUY MEYER EXP COSIGNER: URGENCY: STATUS: COMPLETED COMMUNITY CARE-REQUEST FOR SERVICE NOTE Has ADDENDA Request for Services (RFS) documentation has been sent for scanning to [employer] [facility] Community Care Consult: COMMUNITY CARE-cardiology Consult No: tbd Date sent to scanning: Mar A Request for Service (RFS) form [id number] has been received which includes the following: Care Requested:carotid ultrasound, echocardiogram, and office f/u forpost-STEMI care ICD-10 Dx code: I21.3 Date VA received request: Jan Date service required: Mar Requesting Community Provider Information: Name of Ordering Provider: Elan Mendieta Office:[facility] Address, City, State: [address] [place], [place] [id number] ALERT PACT: please place consult if pcp agrees /hi/ DUY MEYER JR. MPH, RN REGISTERED NURSE Signed: 03/04/2025 14:02 Receipt Acknowledged By: 03/04/2025 14:59 /hi/ Yadi Bray RN, BSN Primary Care 03/04/2025 14:52 /hi/ Jean Jones MD Staff Physician 03/04/2025 ADDENDUM STATUS: COMPLETED Done. /hi/ Jean Jones MD Staff Physician Signed: 03/04/2025 14:52 DUY MEYER [place] [facility]
--- OUTSIDE RECORDS SUMMARY | 2025-03-04 10:10 | XMS_ITS | Encounter Summary ---
Author Name [facility] [place] Organization [facility] [place] Address [address] [place] [address] Care Team Providers Care Corn Sheller Operator Name Role Phone ALBERTO JULIAN Primary Care [...] PART B Mar 02, 2019 PART B [id number] ISAMAR FOLEY PATIENT MEDICARE (WNR) MEDICARE (M) PART A Jan 31, 2018 PART A [id number] RENATO FOLEYINO PATIENT [facility] (WNR) MEDICARE ADVANTAGE [facility] (WNR) Sep 02, 2019 [facility] [id number] ISAMAR FOLEY PATIENT [facility] (WNR) MEDICARE ADVANTAGE [facility](W NR) Sep 02, 2019 [facility] [id number] RENATO FOLEYINO PATIENT Selected Encounter This section includes the information on record at [place] for the Encounter. Date/Time Encounter Type Encounter Description Reason Pro vider Source Mar 04, 2025 02:10 PM Outpatient Encounter COMMUNITY CARE CONSULT IHE Encounter Template Text not used by [place] Plan of Treatment: Future Appointments (+ 6 months) and Future Tests (+/- 45 days) The Plan of Treatment section includes future care activities for the patient from all [place] [facility] This section includes future appointments and future orders which are active, pending or scheduled. Future Appointments This section includes appointments that were scheduled to occur 6 months from the date of the Encounter, up to a maximum of 20 appointments. The data comes from all [facility]. Appointment Date/Time Appointment Type Appointme nt Facility Name Mar 18, 2025 10:00 AM AMBULATORY - REHAB MEDICIN E [place] [facility] [place] [facility] Mar 22, 2025 09:15 AM AMBULATORY - MEDICINE AL C [facility] [facility] Apr 07, 2025 10:00 AM AMBULATORY MEDICINE AL C [facility] [place] [facility] Apr 09, 2025 10:00 AM AMBULATORY MEDICINE AL C [facility] [place] [facility] Apr 29, 2025 10:30 AM AMBULATORY - MEDICINE AL C [facility] [place] [facility] Jun 16, 2025 08:30 AM AMBULATORY - MEDICINE AL C [facility] [place] [facility] Aug 11, 2025 10:30 AM AMBULATORY MEDICINE AL C [facility] [place] [facility] Active, Pending, and Scheduled Orders This section includes a listing of several types of active, pending, and scheduled orders, including clinic medications orders, diagnostic test orders, procedure orders and consult orders; where the start date of the order is 45 days before the date of the Encounter or 45 days after the date of theEncounter. The data comes from all [facility]. Test Date/Time Test Type Test Details Facility Name Feb 08, 2025 04:44 PM Consult Order COMMUNITY CARE-UROLOGY Cons Director [employer]'s Choice [place] [facility] [place] [facility] Lab Results: +/- 30 days [...] Type Comment Feb 05, 2025 08:40 AM [facility] MICROSCOPIC AUTOMATED, URINE URINE Specimen T ype: URINE Comment: If Glucose = >500 and Ketones are positive, please alert the Physician. Ordering Provider: ALBERTO JULIAN Report Released Date/Time: Feb 05, 2025 08:27 AM Reporting Lab: [facility] [address] [facility] [address] Performing Lab: [facility] [address] [facility] [address] UA WBC 0-5 /[HPF] 0-5 UA BACTERIA 1+ /[HPF] NoneObs UA MUCUS FEW /[LPF] Trace UA HYALINE CASTS 2-4 /[LPF] 0-2 UA RBC 6-10 /[HPF] H 0-3 Feb 05, 2025 08:40 AM [facility] URINALYSIS CLEAN CATCH URINE Specimen Type: U RINE Comment: If Glucose = >500 and Ketones are positive, please alert the Physician. Ordering Provider: ALBERTO JULIAN Report Released Date/Time: Feb 05, 2025 08:27 AM Reporting Lab: [facility] [address] [facility] [address] Performing Lab: [address] [address] UA COLOR Yellow Yellow UA APPEARANCE Clear Clear UA GLUCOSE Normal mg/dL Negative UA KETONES NEGATIVE mg/dL Negative UA BLOOD NEGATIVE mg/dL Negative UA PROTEIN 50 mg/dL Negative UA NITRITE NEGATIVE mg/dL Negative UA BILIRUBIN NEGATIVE mg/dL Negative UA SPECIFIC GRAVITY 1.029 H 1.016-1.022 UA pH 5.5 5.0-9.0 UA UROBILINOGEN Normal mg/dL <2.0 UA LEUKOCYTE NEGATIVE Negative Feb 04, 2025 07:59 AM [facility] LIVER FUNCTION SERUM Specimen Type: SERUM No comment entered. Ordering Provider: ALBERTO JULIAN Report Released Date/Time: January 23, 2025 05:03 PM Reporting Lab: [facility] [address] [facility] [address] Performing Lab: [address] [place] [address] PROTEIN,TOTAL 7.3 g/dL 6.4-8.3 ALBUMIN 4.7 g/dL H 3.2-4.6 ALKALINE PHOSPHATASE 86 U/L 40-150 AST 30 U/L 5-34 ALT 35 U/L 0-55 BILIRUBIN, TOTAL 1.6 mg/dL H 0.2-1.2 BILIRUBIN, DIRECT 0.4 mg/dL 0-0.5 Feb 04, 2025 07:59 AM [facility] BASIC METABOLIC PANEL (fasting) SERUM Specime n Type: SERUM No comment entered. Ordering Provider: ALBERTO JULIAN Report Released Date/Time: January 23, 2025 05:03 PM Reporting Lab: [address] [address] Performing Lab: [address] [address] UREA NITROGEN 15 mg/dL 8-26 GLUCOSE 111 mg/dL H 65-100 SODIUM 139 mmol/L 136-145 POTASSIUM 4.3 mmol/L 3.5-5.1 CHLORIDE 104 mmol/L 98-107 CO2 26 meq/L 23-31 CALCIUM 9.3 mg/dL 8.8-10 CREATININE, Serum 1.05 mg/dL 0.72-1.25 eGFR(CKD-EPI 2020) 75 mL/min >60 Feb 04, 2025 07:59 AM [facility] LIPID PANEL FASTING SERUM Specimen Type: SERU M No comment entered. Ordering Provider: ALBERTO JULIAN Report Released Date/Time: January 23, 2025 05:03 PM Reporting Lab: [address] [address] Performing Lab: [address] [address] CHOLESTEROL 135 mg/dL TRIGLYCERIDE 114 mg/dL 0-150 LDL calculated 63 mg/dL 0-129 CHOL/HDL 2.8 HDL CHOLESTEROL 49 mg/dL >40 Feb 04, 2025 07:59 AM [facility] TSH SERUM Specimen Type: SERUM No comment entered. Ordering Provider: ALBRETO JULIAN Report Released Date/Time: January 23, 2025 05:03 PM Reporting Lab: [facility] [address] [facility] [address] Performing Lab: [facility] [address] [facility] [address] TSH 0.68 u[IU]/mL 0.35-4.94 Feb 04, 2025 07:59 AM [facility] MICROSCOPIC AUTOMATED, URINE URINE Specimen T ype: URINE Comment: If Glucose = >500 and Ketones are positive, please alert the Physician. Ordering Provider: ALBERTO JULIAN Report Released Date/Time: January 23, 2025 05:03 PM Reporting Lab: [facility] [address] [facility] [address] Performing Lab: [address] [address] UA WBC 0-5 /[HPF] 0-5 UA MUCUS FEW /[LPF] Trace UA RBC 3-5 /[HPF] 0-3 UA SQUAMOUS EPITH FEW /[HPF] Feb 04, 2025 07:59 AM [facility] CBC AND DIFF (AUTO) BLOOD Specimen Type: BLOO D No comment entered. Ordering Provider: ALBERTO JULIAN Report Released Date/Time: January 23, 2025 05:03 PM Reporting Lab: [facility] [address] [facility] [address] Performing Lab: [address] [address] WBC 6.09 10*3/uL 4.50-11.00 RBC 5.48 10*6/uL [...] 10*3/uL 0.00-0.00 Feb 04, 2025 07:59 AM [facility] URINALYSIS CLEAN CATCH URINE Specimen Type: U RINE Comment: If Glucose = >500 and Ketones are positive, please alert the Physician. Ordering Provider: ALBERTO JULIAN Report Released Date/Time: January 23, 2025 05:03 PM Reporting Lab: [address] [address] Performing Lab: [address] [address] UA COLOR Yellow Yellow UA APPEARANCE Clear [...] 03, 2024 11:00 AM [facility] Tobacco Use History This section includes a history of the smoking, or tobacco-related health factors, that were collected on or before the date of the Encounter. The data comes from the [place] facility where the Encounter took place. Date/Time Smoking Status/Tobacco Use Comment F acility January 25, 2023 11:00 AM VA-TOBACCO NEVER USED [place] [facility] [place] [facility] January 22, 2022 08:30 AM VA-TOBACCO NEVER USED AL [facility] [place] [facility] January 10, 2021 09:00 AM VA-TOBACCO NEVER USED AL [facility] [place] [facility] Dec 08, 2019 09:25 AM VA-TOBACCO NEVER USED AL [facility] [place] [facility] Nov 17, 2018 09:09 AM VA-TOBACCO NEVER USED AL [facility] [place] [facility] Jun 19, 2017 11:17 AM LIFETIME NON-TOBACCO USER AL [facility] [place] [facility] May 17, 2016 10:41 AM LIFETIME NON-TOBACCO USER AL [facility] [facility] May 06, 2015 09:03 AM LIFETIME NON-TOBACCO USER AL [facility] [facility] Pathology Reports: +/- 30 days [...] AM LR MICROBIOLOGY RE PORT: Reporting Lab: [place] [facility] [place] [facility] [CLIA# [id number]] [address] [place] [address] Accession [UID]: [id number] [[id number]] Received: Feb 05, 2025@08:41 Collection sample: URINE CLEAN CATCH Collection date: Feb 05, 2025 08:40 Site/Specimen: URINE Provider: ALBERTO JULIAN Test(s) ordered: URINE CULTURE(MWROX).......... completed: Feb 08, 2025 13:05 * BACTERIOLOGY FINAL REPORT => Feb 08, 2025 13:05 TECH CODE: [id number] Bacteriology Remark(s): NO GROWTH IN 24 HOURS, FINAL REPORT TO FOLLOW. FINAL AEROBIC REPORT: NO GROWTH =--=--=--=--=--=--=--=-- =--=--=--=--=--=--=--=-- =--=--=--=--=--=--=--=-- =--=-- Performing Laboratory: Bacteriology Report Performed By: [facility] [CLIA# [id number]] [address] [place] [id number] ODESSA CARSON [facility] Encounter Notes: All associated encounter notes This section contains the clinical notes associated to the Encounter. Date/Time Encounter Note(s) Provider Source Mar 04, 2025 02:12 PM NONVA NOTE: LOCAL TITLE: COMMUNITY CARE-CARE COORDINATION PLAN NOTE STANDARD TITLE: NONVA NOTE DATE OF NOTE: MAR 04, 2025@14:12 ENTRY DATE: MAR 04, 2025@14:13:06 AUTHOR: DUY MEYER EXP COSIGNER: URGENCY: STATUS: COMPLETED Community Care Consult: cardiology Consult No: tbd HSRM Referral #: tbd Community Provider or Hospital Information [facility] Provider Information Provider Name: brooke campos Provider Address: [address] [place] [address] City: [place] State: [place] Provider Provider Provider Email: Chief Complaint: post stemi OP f/u care Patient Admitted? No Level of Care Coordination Basic Care Coordination was determined from: Chart Review Facility Community Care Office Contact Care Coordination Point of Contact: [facility] Services: Navigation Scheduling Post-Appointment Follow-Up E-Communications to referring provider Plan: post stemi OP f/u care including carotid ultrasound and echocardiogram /es/ DUY MEYER JR. MPH, RN REGISTERED NURSE Signed: 03/04/2025 14:14 DUY MEYER [facility]TRL [facility]
--- OUTSIDE RECORDS SUMMARY | 2025-03-18 06:00 | XMS_ITS ---
Author Name [facility] [place] [facility] [place] Address [address] [place] [address] Care Team Providers Care Physical Therapy Attendant Name Role Phone ALBERTO JULIAN Primary Care [...] PART B Mar 02, 2019 PART B [id number] ISAMAR FOLEY PATIENT MEDICARE (WNR) MEDICARE (M) PART A Jan 31, 2018 PART A [id number] RENATO FOLEYINO PATIENT [facility] (WNR) MEDICARE ADVANTAGE [facility] (WNR) Sep 02, 2019 [facility] [id number] ISAMAR FOLEY PATIENT [facility] (WNR) MEDICARE ADVANTAGE [facility](W NR) Sep 02, 2019 [facility] [id number] ISAMAR FOLEY PATIENT Selected Encounter This section includes the information on record at [place] for the Encounter. Date/Time Encounter Type Encounter Description Reason Provider Source Mar 18, 2025 10:00 AM PT EVAL LOW COMPLEX 20 MIN PHYSICAL THERAPY ICD-10-CM M54.9 Dorsalgia, unspecified IVETTE MERRITT [facility] Encounter Template Text not used by [place] Assessments - Encounter Diagnoses This section includes the primary and secondary diagnoses documented for the Encounter. Date/Time Primary/Secondary Diagnosis Diagnosis Name Provider Source Mar 18, 2025 10:27 AM PRIMARY Dorsalgia, unspecified IVETTE MERRITT [facility] Plan of Treatment: Future Appointments (+ 6 months) and Future Tests (+/- 45 days) The Plan of Treatment section includes future care activities for the patient from all [place] [facility]. This section includes future appointments and future orders which are active, pending or scheduled. Future Appointments This section includes appointments that were scheduled to occur 6 months from the date of the Encounter, up to a maximum of 20 appointments. The data comes from all [facility]. Appointment Date/Time Appointment Type Appointme nt Facility Name Mar 22, 2025 09:15 AM AMBULATORY - MEDICINE [facility] Apr 07, 2025 10:00 AM AMBULATORY MEDICINE [facility] [place] [facility] Apr 09, 2025 10:00 AM AMBULATORY MEDICINE [facility] [place] [facility] Apr 29, 2025 10:30 AM AMBULATORY MEDICINE [facility] [place] [facility] Jun 16, 2025 08:30 AM AMBULATORY MEDICINE [facility] [place] [facility] Aug 11, 2025 10:30 AM [facility] Active, Pending, and Scheduled Orders This section includes a listing of several types of active, pending, and scheduled orders, including clinic medications orders, diagnostic test orders, procedure orders and consult orders; where the start date of the order is 45 days before the date of the Encounter or 45 days after the date of theEncounter. The data comes from all [place] treatment [facility]. Test Date/Time Test Type Test Details Facility Name Feb 08, 2025 04:44 PM Consult Order COMMUNITY CARE-UROLOGY Cons Supervisor [employer] [facility] [facility] Social History: Smoking Status (Most current) and Tobacco Use (All prior to encounter date) This section includes the most current, and the historical, smoking and tobacco- related health factors from the [place] facility where the Encounter took place. Current Smoking Status This section includes the most current smoking, or tobacco-related health factor, from the [place] facility where the Encounter took place. Date/Time Current Smoking Status Comment Rafia susan Feb 03, 2024 11:00 AM VA-TOBACCO NEVER USED [place] [facility] [place] [facility] Tobacco Use History This section includes a history of the smoking, or tobacco-related health factors, that were collected on or before the date of the Encounter. The data comes from the [place] facility where the Encounter took place. Date/Time Smoking Status/Tobacco Use Comment Pat acbrenna January 25, 2023 11:00 AM VA-TOBACCO NEVER USED [facility] [place] [facility] January 22, 2022 08:30 AM VA-TOBACCO NEVER USED [facility] [place] [facility] January 10, 2021 09:00 AM VA-TOBACCO NEVER USED [facility] [place] [facility] Dec 08, 2019 09:25 AM VA-TOBACCO NEVER USED [facility] [place] [facility] Nov 17, 2018 09:09 AM VA-TOBACCO NEVER USED [facility] [place] [facility] Jun 19, 2017 11:17 AM LIFETIME NON-TOBACCO USER [facility] [place] [facility] May 17, 2016 10:41 AM LIFETIME NON-TOBACCO USER [facility] [place] [facility] May 06, 2015 09:03 AM LIFETIME NON-TOBACCO USER [facility] [place] [facility] Encounter Notes: All associated encounter notes This section contains the clinical notes associated to the Encounter. Date/Time Encounter Note(s) Provider Source Mar 18, 2025 09:58 AM PHYSICAL THERAPY CONSULT: LOCAL TITLE: PHYSICAL THERAPY CONSULT STANDARD TITLE: PHYSICAL THERAPY CONSULT DATE OF NOTE: MAR 18, 2025@09:58 ENTRY DATE: MAR 18, 2025@09:58:08 AUTHOR: IVETTE MERRITT COSIGNER: URGENCY: STATUS: COMPLETED Initial Evaluation date: 03/18/25 Progress Note Date: Treatment #: 0 Treatment time: 15' Diagnosis: LBP Provider: Robert MCKAY Treatment Precautions: none SUBJECTIVE: Pt reports that the low back pain has gone away. wants to know what he can do to be more active I have a problem with my TV Has been trying to do exercise He walks for exercise, walks every day. has elliptical machine but does not use. Looking to try to get in more of a routine to stay active, feels he is getting more sedentary. Current Exercise Habits: walking Active problems - Computerized Problem List is the source for the followin. Back pain 2. Microscopic haematuria 3. Hoarse 4. CAD - Coronary Artery Disease ([facility] [id number]) 5. Sleep apnea 6. Impaired fasting glucose 7. Hypercholesterolemia ([facility] [id number]) 8. Ankle pain 9. Impaired fasting glucose 10. Cocaine dependence in remission ([facility] [id number]) 11. Alcohol dependence 12. Housing lack 13. HTN - Hypertension 14. Non-cardiac chest pain OBJECTIVE: Pt ambulates into clinic w/o antalgia No assistive device full lumbar AROM w/o pain this date. Strength screen grossly WFL of LE's Treatment Provided: Patient education was provided for all aspects of care during this clinical encounter. Discussed Gerofit program with . is very interested in this as he is having more an dmore trouble sticking to a routine for working out and feels he is becoming more sedentary. Also feels it would be helpful because he lives alone and socially is looking for more connection. Assessment: Pt no longer w/ low back pain. Looking for help with routine exercise. Gerofit referral placed. Will see Cardiology next week, to get clearance prior to start. Plan: No PT for low back pain at this time. Begin Gerofit. /hi/ Ivette Merritt PT,DPT PHYSICAL THERAPIST Signed: 03/18/2025 10:27 IVETTE MERRITT [place] [facility]
--- OUTSIDE RECORDS SUMMARY | 2025-04-08 05:46 | XMS_ITS ---
Author Name [facility] [place] [facility] [place] Address [address], [place] [address] Care Team Providers Care Outside Medical Sales Representative Name Role Phone JEAN JONES Primary Care [...] PART B Mar 02, 2019 PART B [id number] RENATO FOLEYINO PATIENT MEDICARE (WNR) MEDICARE (M) PART A Jan 31, 2018 PART A [id number] ISAMAR FOLEY PATIENT [facility] (WNR) MEDICARE ADVANTAGE [facility] (WNR) Sep 02, 2019 [facility] [id number] OGISAMAR PATIENT [facility] (WNR) MEDICARE ADVANTAGE [facility](W NR) Sep 02, 2019 [facility] [id number] ISAMAR FOLEY PATIENT Selected Encounter This section includes the information on record at [place] for the Encounter. Date/Time Encounter Type Encounter Description Reason Pro vider Source Apr 08, 2025 09:46 AM Outpatient Encounter ADMIN PAT ACTIVTIES (MASNONCT) I[facility] Encounter Template Text not used by [place] Plan of Treatment: Future Appointments (+ 6 months) and Future Tests (+/- 45 days) The Plan of Treatment section includes future care activities for the patient from all [place] treatmentfacilities. This section includes future appointments and future orders which are active, pending or scheduled. Future Appointments This section includes appointments that were scheduled to occur 6 months from the date of the Encounter, up to a maximum of 20 appointments. The data comes from all [place] treatment facilities. Appointment Date/Time Appointment Type Appointme nt Facility Name Apr 09, 2025 10:00 AM AMBULATORY - MEDICINE [place] [facility] [place] [facility] Apr 29, 2025 10:30 AM AMBULATORY - MEDICINE [facility] [place] [place] [facility] Jun 16, 2025 08:30 AM AMBULATORY - MEDICINE [facility] [place] [facility] Aug 11, 2025 10:30 AM AMBULATORY - MEDICINE [place] [facility] [place] [facility] Social History: Smoking Status (Most current) and Tobacco Use (All prior to encounter date) This section includes the most current, and the historical, smoking and tobacco- related health factors from the [place] facility where the Encounter took place. Current Smoking Status This section includes the most current smoking, or tobacco-related health factor, from the [place] facility where the Encounter took place. Date/Time Current Smoking Status Comment Facil susan Feb 03, 2024 11:00 AM VA-TOBACCO NEVER USED [place] [facility] [place] [facility] Tobacco Use History This section includes a history of the smoking, or tobacco-related health factors, that were collected on or before the date of the Encounter. The data comes from the [place] facility where the Encounter took place. Date/Time Smoking Status/Tobacco Use Comment F acility January 25, 2023 11:00 AM VA-TOBACCO NEVER USED [facility] [place] [facility] January 22, 2022 08:30 AM VA-TOBACCO NEVER USED [facility] [place] [facility] January 10, 2021 09:00 AM VA-TOBACCO NEVER USED [facility] [place] [facility] Dec 08, 2019 09:25 AM VA-TOBACCO NEVER USED [facility] [place] [facility] Nov 17, 2018 09:09 AM VA-TOBACCO NEVER USED [facility] [place] [facility] Jun 19, 2017 11:17 AM LIFETIME NON-TOBACCO USER [facility] [place] [facility] May 17, 2016 10:41 AM LIFETIME NON-TOBACCO USER [facility] [place] [facility] May 06, 2015 09:03 AM LIFETIME NON-TOBACCO USER [place] [facility] [place] [facility] Encounter Notes: All associated encounter notes This section contains the clinical notes associated to the Encounter. Date/Time Encounter Note(s) Provider Source Apr 08, 2025 09:46 AM PHARMACY NOTE: LOCAL TITLE: V1 PHARMACY CUSTOMER CARE MEDICATION RENEWAL STANDARD TITLE: PHARMACY NOTE DATE OF NOTE: APR 08, 2025@09:46 ENTRY DATE: APR 08, 2025@09:47:02 AUTHOR: GIL ALEJANDRE EXP COSIGNER: URGENCY: STATUS: COMPLETED V1 PHARMACY CUSTOMER CARE MEDICATION RENEWAL Has ADDENDA Date: Apr Division: [facility] referred by Pharmacy Call Center for medication renewal: Non-controlled/maintenance medication Medications requested: [id number] AMLODIPINE BESYLATE 10MG TAB [id number] ASPIRIN 81MG EC TAB [id number] ATORVASTATIN CALCIUM 80MG TAB [id number] CLOPIDOGREL BISULFATE 75MG [id number] ISOSORBIDE MONONITRATE 30MG Patient is out of Isosorbide and would appreciate expedited delivery if available. Please contact the outpatient pharmacy for assistance. [facility] is able to apple picker at pharmacy window if option is available. [id number] TAMSULOSIN HCL 0.4MG CAP Defer to primary care provider To be mailed . Please review and renew if appropriate. *This note was generated by [facility]/CT Pharmacy Customer Care. If you have any questions or need assistance, do not contact this author. Please refer all questions to your local, on-site pharmacy departments. /hi/ GIL ALEJANDRE CPhT [employer] [place], [place]/Pharmacy Customer Care Signed: 04/08/2025 09:47 Receipt Acknowledged By: 04/08/2025 13:16 /hi/ Yadi Bray RN, BSN Primary Care 04/08/2025 11:30 /hi/ Jean Jones MD Staff Physician 04/08/2025 ADDENDUM STATUS: COMPLETED Clopidogrel discontinued by cardiology. Other 5 medications renewed. /es/ Jean Jones MD Staff Physician Signed: 04/08/2025 11:30 GIL ALEJANDRE [facility]
--- OUTSIDE RECORDS SUMMARY | 2025-04-29 05:35 | XMS_ITS | Continuity of Care Document ---
Author Name [facility] Organization [facility] Care Team Providers Care Supply Chain Associate Name Role Phone [facility] Unavailable Unavailable Problems Combined list of problems from Department of Defense and Veterans Affairs facilities. It does not include entries that were removed or entered in error. Problem Status Onset Date Problem Type Date of Resolution Comments Source Back pain Active 025 Condition Feb 05, 2025 Entered By: ALBERTO JULIAN Comment: osteoarthritis [facility] Microscopic haematuria Active 025 Condition Feb 05, 2025 Entered By: ALBERTO JULIAN Comment: ordered evaluation [facility] Hoarse Active 024 Condition Feb 03, 2024 Entered By: ALBERTO JULIAN Comment: referred to ent [facility] CAD - Coronary Artery Disease (SCT 80867842) Active 023 Condition Mar 21, 2023 Entered By: ALBERTO JULIAN Comment: [place] [facility] Impaired fasting glucose Active 021 Condition Jul 24, 2021 Entered By: ALBERTO JULIAN Comment: treated with diet [facility] Hypercholesterolemia (SCT 14242088) Active 020 Condition Jul 12, 2020 Entered By: ALBERTO JULIAN Comment: treated with medication [facility] Ankle pain Active 019 Condition Jul 17, 2019 Entered By: ALBERTO JULIAN Comment: [place] to [place]opedics [facility] Impaired fasting glucose Active 018 Condition Apr 01, 2018 Entered By: ALBERTO JULIAN Comment: treated with diet [facility] Alcohol dependence Active Condition S ep 2014 Entered By: SANTHOSH NICHOLS Comment: PT Meets DSM-5 Dx Criteria for: Alcohol Use Disorder, Severe CULLEN Cocaine dependence in remission (SNOMED CT 932417956) Active Condition [facility] Gastroesophageal Reflux Disorder * (ICD-9-CM 530.81) Active Condition [facility] Housing lack Active Condition [facility] HTN - Hypertension Active Condition [facility] Non-cardiac chest pain Active Condition May 05, 2015 Entered By: FRED FERNANDES Comment: neg echo, [facility] [place] [facility], cardiologi consult [facility] Sleep apnea Active Condition [facility] Diagnosis: ICD-10-CM Z72.3 Lack of physical exercise Active Diagnosis [facility] Diagnosis: ICD-10-CM Z23 Encounter for immunization Active Diagnosis [facility] Diagnosis: ICD-10-CM M54.9 Dorsalgia, unspecified Active Diagnosis [facility] Diagnosis: ICD-10-CM Z46.0 Encounter for fit/adjst of spectacles and contact lenses Active Diagnosis [facility] Diagnosis: ICD-10-CM M54.50 Low back pain, unspecified Active Diagnosis [facility] Diagnosis: ICD-10-CM Z71.89 Other specified counseling Active Diagnosis [facility] Diagnosis: ICD-10-CM M20.11 Hallux valgus (acquired), right foot Active Diagnosis [facility] Diagnosis: ICD-10-CM R73.01 Impaired fasting glucose Active Diagnosis [facility] Diagnosis: ICD-10-CM H04.123 Dry eye syndrome of bilateral lacrimal glands Active Diagnosis [facility] Diagnosis: ICD-10-CM R13.12 Dysphagia, oropharyngeal phase Active Diagnosis [facility] Diagnosis: ICD-10-CM J37.0 Chronic laryngitis Active Diagnosis [facility] Medications Combined list of outpatient medications from Department of Defense and Veterans Affairs facilities.Medications provided include 1) outpatient medications from the last 15 months, and 2) patient-reported medications. Medication Details Route Status Patient Instructions Prescription Expires Prescription Number Last Dispense Date Ordering Provider Order Date Order Qty Source AMLODIPINE BESYLATE 10MG TAB TAKE ONE TABLET BY MOUTH ONCE DAILY FOR BLOOD PRESSURE /HEART, DO NOT TAKE WITH GRAPEFRU IT JUICE ORAL ACTIVE 04/09/2026 [id number] 5 RICO JULIAND D [address] [facility] AMLODIPINE BESYLATE 10MG TAB TAKE ONE TABLET BY MOUTH ONCE DAILY FOR BLOOD PRESSURE /HEART, DO NOT TAKE WITH GRAPEFRU IT JUICE ORAL DISCONT INUED 02/03/2025 [id number] 5 R[place] JULIAN D [address] [facility] ASPIRIN 81MG TAB,EC TAKE ONE TABLET BY MOUTH ONCE DAILY TO PREVENT STROKE/H EART ATTACK ORAL ACTIVE 04/09/2026 [id number] 5 RICO JULIAND D [address] [facility] ASPIRIN 81MG TAB,EC TAKE ONE TABLET BY MOUTH ONCE DAILY TO PREVENT STROKE/H EART ATTACK ORAL DISCONT INUED 02/03/2025 [id number] 5 RICO JULIAN D [address] [facility] ASPIRIN 81MG TAB,EC TAKE ONE TABLET BY MOUTH ONCE DAILY TO PREVENT STROKE/H EART ATTACK ORAL DISCONT INUED 03/21/2024 [id number] RICO JULIAN D [address] [facility] ATORVASTATI N CA 80MG TAB TAKE ONE TABLET BY MOUTH AT BEDTIME ORAL ACTIVE 04/09/2026 [id number] 5 RICO JULIAN D 2024 90 [facility] ATORVASTATI N CA 80MG TAB TAKE ONE TABLET BY MOUTH AT BEDTIME ORAL DISCONT INUED 02/03/2025 [id number] 4 RICO JULIAND D [address] [facility] ATORVASTATI N CA 80MG TAB TAKE ONE TABLET BY MOUTH AT BEDTIME ORAL DISCONT INUED 03/21/2024 [id number] RICO JULIAN CRISSY D 2022 90 [facility] CARBOXYMETH YLCELLULOSE NA 0.5% SOLN,OPH INSTILL 1 DROP INTO EACH EYE FOUR TIMES DAILY NEEDED FOR DRY EYE OPHTHA LMIC ACTIVE 06/04/2025 [id number] MERHAR,NO AH B 2023 45 [facility] CLOPIDOGREL BISULFATE 75MG TAB TAKE ONE TABLET BY MOUTH ONCE DAILY ORAL 02/03/2025 [id number] 5 RICO JULIAN CRISSY D 2023 90 [facility] CLOTRIMAZOL E 1% SOLN,TOP APPLY DIRECTED TOPICALL Y ONCE DAILY FOR FUNGAL INFECTIO N TOPICA L 03/14/2024 [id number] [place] GANNON 2022 30 [facility] ISOSORBIDE MONONITRATE 30MG TAB,SA TAKE ONE TABLET BY MOUTH ONCE DAILY ORAL ACTIVE 04/09/2026 [id number] 5 RICO JULIAND D 2024 90 [facility] ISOSORBIDE MONONITRATE 30MG TAB,SA TAKE ONE TABLET BY MOUTH ONCE DAILY ORAL DISCONT INUED 02/03/2025 [id number] 5 RICO JULIAND D 2023 90 [facility] MULTIVITAMI NS W/MINERALS TAB TAKE ONE TABLET BY MOUTH ONCE DAILY ORAL ACTIVE RICO JULIAN D 2020 [facility] TAMSULOSIN HCL 0.4MG CAP TAKE ONE CAPSULE BY MOUTH AT BEDTIME ORAL ACTIVE 04/09/2026 [id number] 5 RICO JULIAND D 2024 90 [facility] TAMSULOSIN HCL 0.4MG CAP TAKE ONE CAPSULE BY MOUTH AT BEDTIME ORAL DISCONT INUED 02/03/2025 [id number] 5 RICO JULIAN 2023 90 [facility] Immunizations Combined list of available immunizations from the Department of Defense and Veterans Affairs facilities. Immunization Series Date Given Administered By Site Reaction Lot Number CVX Code Drug Divider Operator Status Comments Source COVID-19 (MODERNA), MRNA, LNP-S, PF, 50 MCG/0.5 ML (AGES 12+ YEARS) 2024 ZAKI MCRAE LEFT DELTO ID [id number] 312 complet ed Booster for Series, [facility] TDAP 2024 AYDEN FOWLER LEFT DELTO ID [id number] 115 complet ed Completed Series, [facility] COVID-19 (MODERNA), MRNA, LNP-S, PF, 50 MCG/0.5 ML (AGES 12+ YEARS) 1 2023 ZAKI MCRAE LEFT DELTO ID [id number] 312 complet ed [facility] INFLUENZA, HIGH-DOSE, QUADRIVALENT 2022 ZAKI MCRAE RIGHT DELTO ID [id number] 197 complet ed Completed Series, [facility] RSV, BIVALENT, PROTEIN SUBUNIT RSVPREF, DILUENT RECONSTITUTED , 0.5 ML, PF 2022 ZAKI MCRAE LEFT DELTO ID [id number] 305 complet ed Completed Series, [facility] COVID-19 (MODERNA), MRNA, LNP-S, BIVALENT BOOSTER, PF, 50 MCG/0.5 ML OR 25MCG/0.25 ML DOSE 1 2021 229 complet ed MOD; [id number]; 3 [facility] INFLUENZA VACCINE, QUADRIVALENT, ADJUVANTED 2021 205 complet ed [facility] COVID-19 (MODERNA), MRNA, LNP-S, PF, 100 MCG/0.5ML DOSE OR 50 MCG/0.25ML DOSE 3 2021 207 complet ed MOD; [id number] ; 2 [facility] INFLUENZA, INJECTABLE, QUADRIVALENT, PRESERVATIVE FREE 2020 150 complet ed Site: Left Deltoid [facility] PNEUMOCOCCAL POLYSACCHARID E PPV23 2020 33 complet ed [facility] COVID-19 (MODERNA), MRNA, LNP-S, PF, 100 MCG OR 50 MCG DOSE 3 2020 207 complet ed MOD; [id number]; 2 [facility] ZOSTER RECOMBINANT 2 2020 187 complet ed [facility] COVID-19 (MODERNA), MRNA, LNP-S, PF, 100 MCG/0.5 ML DOSE 2 2020 207 complet ed MOD; [id number]; 1 [facility] COVID-19 (MODERNA), MRNA, LNP-S, PF, 100 MCG/0.5 ML DOSE 1 2020 207 complet ed MOD; [id number]; 1 [facility] INFLUENZA, HIGH-DOSE, QUADRIVALENT 2019 197 complet ed [facility] ZOSTER RECOMBINANT 1 2019 187 complet ed [facility] INFLUENZA, SEASONAL, INJECTABLE 2018 141 complet ed [facility] PNEUMOCOCCAL CONJUGATE PCV 13 2017 133 complet ed [facility] INFLUENZA, SEASONAL, INJECTABLE 2016 141 complet ed Site: Right Deltoid [facility] FLU,3 YRS (HISTORICAL) 2015 88 complet ed Site: Left Deltoid [facility] PNEUMOCOCCAL POLYSACCHARID E PPV23 2015 33 complet ed [facility] ZOSTER (SHINGLES) (HISTORICAL) 2014 121 complet ed Proximal Right Arm [facility] DTAP, UNSPECIFIED FORMULATION 2014 107 complet ed Site: Left Deltoid [facility] FLU,3 YRS (HISTORICAL) 2014 88 complet ed Site: Right Deltoid [facility] INFLUENZA, UNSPECIFIED FORMULATION 2008 88 complet ed [id number] NOVARTIS EXP 03/01/10, Injection in left deltoid. , No allergy to eggs or vaccines, Verbalize ilya coronel, No allergic reaction to inj [facility] Results Combined list of recent chemistry, hematology and other laboratory results from Department of Defense and Veterans Affairs, ranging from 15 months to all on record, depending upon the facility. Order Name Results Value Reference Range Date Interpretation Specimen Comments Source MICROSCO PIC AUTOMATE D, URINE LEUKOCYTES [#/AREA] IN URINE SEDIMENT BY MICROSCOPY HIGH POWER FIELD 0-5/[HPF ] 0 - 5 02/05 Specimen Type: URINE Comment: If Glucose = >500 and Ketones are positive, please alert the Physician. Ordering Provider: DULCE JULIAN Report Released Date/Time: Feb 05, 2025 08:27 AM Reporting Lab: [facility] [place] [facility] [address] [facility] [address] Performing Lab: [place] [facility] [place] [facility] [address] [facility] [address] [place] [facility] [facility] [facility] MICROSCO PIC AUTOMATE D, URINE BACTERIA [#/AREA] IN URINE SEDIMENT BY MICROSCOPY HIGH POWER FIELD 1+/[HPF] 02/05 Specimen Type: URINE Comment: If Glucose = >500 and Ketones are positive, please alert the Physician. Ordering Provider: DULCE JULIAN Report Released Date/Time: Feb 05, 2025 08:27 AM Reporting Lab: [facility] [place] [facility] [address] [facility] [address] Performing Lab: [place] [facility] [facility] [facility] [address] [facility] [address] [place] [facility] [facility] [place] [facility] MICROSCO PIC AUTOMATE D, URINE MUCUS [#/AREA] IN URINE SEDIMENT BY MICROSCOPY LOW POWER FIELD FEW/[LPF ] 02/05 Specimen Type: URINE Comment: If Glucose = >500 and Ketones are positive, please alert the Physician. Ordering Provider: DULCE JULIAN Report Released Date/Time: Feb 05, 2025 08:27 AM Reporting Lab: [place] [facility] [place] [facility] [address] [facility] [facility] [address] Performing Lab: [place] [facility] [place] [facility] [address] [facility] [address] [facility] MICROSCO PIC AUTOMATE D, URINE HYALINE CASTS [#/AREA] IN URINE SEDIMENT BY MICROSCOPY LOW POWER FIELD 2-4/[LPF ] 0 - 2 02/05 Specimen Type: URINE Comment: If Glucose = >500 and Ketones are positive, please alert the Physician. Ordering Provider: DULCE JULIAN Report Released Date/Time: Feb 05, 2025 08:27 AM Reporting Lab: [facility] [place] [facility] [address] [address] Performing Lab: [facility] [address] [facility] [address] [facility]TRN [facility] MICROSCO PIC AUTOMATE D, URINE ERYTHROCYT ES [#/AREA] IN URINE SEDIMENT BY MICROSCOPY HIGH POWER FIELD 6-10/[HP F] 0 - 3 02/05 H Specimen Type: URINE Comment: If Glucose = >500 and Ketones are positive, please alert the Physician. Ordering Provider: DULCE JULIAN Report Released Date/Time: Feb 05, 2025 08:27 AM Reporting Lab: [facility] [place] [facility] [address] [facility] [address] Performing Lab: [facility]ENTERTRN [facility]ITALUSETS [address] [address] [facility]ITALR[facility]ITALN [facility]ITALCHUSE [facility] URINALYS IS CLEAN CATCH COLOR OF URINE Yellow 02/05 Specimen Type: URINE Comment: If Glucose = >500 and Ketones are positive, please alert the Physician. Ordering Provider: DULCE JULIAN Report Released Date/Time: Feb 05, 2025 08:27 AM Reporting Lab: [facility] [address] [facility] [address] Performing Lab: [facility] [facility] [address] [address] [facility] [place] [facility] URINALYS IS CLEAN CATCH APPEARANCE OF URINE Clear 02/05 Specimen Type: URINE Comment: If Glucose = >500 and Ketones are positive, please alert the Physician. Ordering Provider: DULCE JULIAN Report Released Date/Time: Feb 05, 2025 08:27 AM Reporting Lab: [facility] [address] [facility] [address] Performing Lab: [facility] [place] [facility] [address] [facility] [facility] [address] [facility] [place] [facility] URINALYS IS CLEAN CATCH GLUCOSE [MASS/VOLU ME] IN URINE Normalmg /dL 02/05 Specimen Type: URINE Comment: If Glucose = >500 and Ketones are positive, please alert the Physician. Ordering Provider: DULCE JULIAN Report Released Date/Time: Feb 05, 2025 08:27 AM Reporting Lab: [facility] [facility] [address] [facility] [address] Performing Lab: [facility] [address] [facility] [address] [facility] [place] URINALYS IS CLEAN CATCH KETONES [MASS/VOLU ME] IN URINE BY TEST STRIP NEGATIVE mg/dL 02/05 Specimen Type: URINE Comment: If Glucose = >500 and Ketones are positive, please alert the Physician. Ordering Provider: DULCE JULIAN Report Released Date/Time: Feb 05, 2025 08:27 AM Reporting Lab: [facility] [address] [facility] [address] Performing Lab: [facility] [address] [facility] [address] [facility] [place] URINALYS IS CLEAN CATCH ERYTHROCYT ES [PRESENCE] IN URINE SEDIMENT BY LIGHT MICROSCOPY NEGATIVE mg/dL 02/05 Specimen Type: URINE Comment: If Glucose = >500 and Ketones are positive, please alert the Physician. Ordering Provider: DULCE JULIAN Report Released Date/Time: Feb 05, 2025 08:27 AM Reporting Lab: [place] [facility] [place] [facility] [address] [facility] [address] Performing Lab: [place] [facility] [place] [facility] [address] [facility] [address] [place] [facility] [place] [facility] URINALYS IS CLEAN CATCH PROTEIN [MASS/VOLU ME] IN URINE BY TEST STRIP 50 mg/dL 02/05 Specimen Type: URINE Comment: If Glucose = >500 and Ketones are positive, please alert the Physician. Ordering Provider: DULCE JULIAN Report Released Date/Time: Feb 05, 2025 08:27 AM Reporting Lab: [place] [facility] [place] [facility] [address] [facility] [address] Performing Lab: [place] [facility] [place] [facility] [address] [facility] [address] [place] [facility] [place] [facility] URINALYS IS CLEAN CATCH NITRITE [PRESENCE] IN URINE NEGATIVE mg/dL 02/05 Specimen Type: URINE Comment: If Glucose = >500 and Ketones are positive, please alert the Physician. Ordering Provider: DULCE JULIAN Report Released Date/Time: Feb 05, 2025 08:27 AM Reporting Lab: [facility] [facility] [address] [facility] [facility] [address] Performing Lab: [place] [facility] [place] [facility] [address] [facility] [address] [facility] [place] URINALYS IS CLEAN CATCH BILIRUBIN. TOTAL [PRESENCE] IN URINE NEGATIVE mg/dL 02/05 Specimen Type: URINE Comment: If Glucose = >500 and Ketones are positive, please alert the Physician. Ordering Provider: DULCE JULIAN Report Released Date/Time: Feb 05, 2025 08:27 AM Reporting Lab: [facility] [place] [facility] [address] [facility] [address] Performing Lab: [place] [facility] [facility] [address] [facility] [address] [place] [facility] [place] [facility] URINALYS IS CLEAN CATCH SPECIFIC GRAVITY OF URINE BY REFRACTOME TRY 1.029 1.016 - 1.022 02/05 H Specimen Type: URINE Comment: If Glucose = >500 and Ketones are positive, please alert the Physician. Ordering Provider: DULCE JULIAN Report Released Date/Time: Feb 05, 2025 08:27 AM Reporting Lab: [facility] [place] [facility] [address] [facility] [address] Performing Lab: [place] [facility] [address] [address] [facility] [place] [facility] URINALYS IS CLEAN CATCH PH OF URINE BY TEST STRIP 5.5 5.0 - 9.0 02/05 Specimen Type: URINE Comment: If Glucose = >500 and Ketones are positive, please alert the Physician. Ordering Provider: DULCE JULIAN Report Released Date/Time: Feb 05, 2025 08:27 AM Reporting Lab: [facility] [place] [facility] [address] [facility] [address] Performing Lab: [place] [facility] [facility] [address] [address] [facility] [place] [facility] URINALYS IS CLEAN CATCH UROBILINOG EN [MASS/VOLU ME] IN URINE BY TEST STRIP Normalmg /dL <2.0 - 2.0 02/05 Specimen Type: URINE Comment: If Glucose = >500 and Ketones are positive, please alert the Physician. Ordering Provider: DULCE JULIAN Report Released Date/Time: Feb 05, 2025 08:27 AM Reporting Lab: [place] [facility] [facility] [address] [facility] [address] Performing Lab: [place] [facility] [address] [address] [place] [facility] [place] [facility] URINALYS IS CLEAN CATCH LEUKOCYTE ESTERASE [PRESENCE] IN URINE BY TEST STRIP NEGATIVE 02/05 Specimen Type: URINE Comment: If Glucose = >500 and Ketones are positive, please alert the Physician. Ordering Provider: DULCE JULIAN Report Released Date/Time: Feb 05, 2025 08:27 AM Reporting Lab: [facility] [address] [address] Performing Lab: [facility] [address] [address] [facility]N [facility] BASIC METABOLI C PANEL (fasting ) UREA NITROGEN [MASS/VOLU ME] IN SERUM OR PLASMA 15 mg/dL 8 - 26 02/04 Specimen Type: SERUM No comment entered. Ordering Provider: DULCE JULIAN Report Released Date/Time: January 23, 2025 05:03 PM Reporting Lab: [address] [address] Performing Lab: [facility]ITALRINF[facility]ITALN [address] [address] [facility] BASIC METABOLI C PANEL (fasting ) GLUCOSE [MASS/VOLU ME] IN SERUM OR PLASMA 111 mg/dL 65 - 100 02/04 H Specimen Type: SERUM No comment entered. Ordering Provider: DULCE JULIAN Report Released Date/Time: January 23, 2025 05:03 PM Reporting Lab: [facility] [address] [address] Performing Lab: [facility]ITALRINFIRMARY [facility] HOSPITALN [facility]ITALUSE[address] [address] [facility] BASIC METABOLI C PANEL (fasting ) SODIUM [MOLES/VOL UME] IN SERUM OR PLASMA 139 mmol/L 136 - 145 02/04 Specimen Type: SERUM No comment entered. Ordering Provider: DULCE JULIAN Report Released Date/Time: January 23, 2025 05:03 PM Reporting Lab: [address] [address] Performing Lab: [facility]ITALRINFIRMARY [facility] HOSPITALN [address] [place] [address] [facility] BASIC METABOLI C PANEL (fasting ) POTASSIUM [MOLES/VOL UME] IN SERUM OR PLASMA 4.3 mmol/L 3.5 - 5.1 02/04 Specimen Type: SERUM No comment entered. Ordering Provider: DULCE JULIAN Report Released Date/Time: January 23, 2025 05:03 PM Reporting Lab: [facility] [place] [facility] [address] [address] Performing Lab: [place] [facility] [facility]ITAL[facility] [address] [facility] [address] [facility]ITALRSPR[facility]ENTERTRN [facility] BASIC METABOLI C PANEL (fasting ) CHLORIDE [MOLES/VOL UME] IN SERUM OR PLASMA 104 mmol/L 98 - 107 02/04 Specimen Type: SERUM No comment entered. Ordering Provider: DULCE JULIAN Report Released Date/Time: January 23, 2025 05:03 PM Reporting Lab: [facility] [place] [facility] [address] [facility] [address] Performing Lab: [facility]ITALRL [facility]ITALUSE[address] [address] [facility]ITALRSPRINGHILL MEDICAL CENTERTRN [facility] BASIC METABOLI C PANEL (fasting ) CARBON DIOXIDE, TOTAL [MOLES/VOL UME] IN SERUM OR PLASMA 26 meq/L 23 - 31 02/04 Specimen Type: SERUM No comment entered. Ordering Provider: DULCE JULIAN Report Released Date/Time: January 23, 2025 05:03 PM Reporting Lab: [place] [facility] [facility] [address] [facility] [facility] [address] Performing Lab: [facility]ITALUSE[address] [address] [facility]ITALRSPRINGHILL [facility]ENTERTRN [facility] BASIC METABOLI C PANEL (fasting ) CALCIUM [MASS/VOLU ME] IN SERUM OR PLASMA 9.3 mg/dL 8.8 - 10 02/04 Specimen Type: SERUM No comment entered. Ordering Provider: DULCE JULIAN Report Released Date/Time: January 23, 2025 05:03 PM Reporting Lab: [facility] [place] [facility] [address] [facility] [address] Performing Lab: [facility] [place] [facility] [address] [facility] [address] [facility] BASIC METABOLI C PANEL (fasting ) CREATININE [MASS/VOLU ME] IN SERUM OR PLASMA 1.05 mg/dL 0.72 - 1.25 02/04 Specimen Type: SERUM No comment entered. Ordering Provider: DULCE JULIAN Report Released Date/Time: January 23, 2025 05:03 PM Reporting Lab: [place] [facility] [place] [facility] [address] [facility] [address] Performing Lab: [place] [facility] [place] [facility] [address] [facility] [address] [facility] [place] [facility] BASIC METABOLI C PANEL (fasting ) GLOMERULAR FILTRATION RATE/1.73 SQ M.PREDICTE D [VOLUME RATE/AREA] IN SERUM, PLASMA OR BLOOD BY CREATININE -BASED FORMULA (CKD-EPI 2020) 75 mL/min 60 02/04 Specimen Type: SERUM No comment entered. Ordering Provider: DULCE JULIAN Report Released Date/Time: January 23, 2025 05:03 PM Reporting Lab: [facility] [place] [facility] [address] [facility] [phone] Performing Lab: [place] [facility] [facility] [address] [facility] [address] FORMERLY [facility]ITALRL WSTRN [facility] LIPID PANEL FASTING CHOLESTERO L [MASS/VOLU ME] IN SERUM OR PLASMA 135 mg/dL 02/04 Specimen Type: SERUM No comment entered. Ordering Provider: DULCE JULIAN Report Released Date/Time: January 23, 2025 05:03 PM Reporting Lab: [facility] [place] [facility] [address] [facility] [address] Performing Lab: [place] [facility] [place] [facility] [address] [facility] [address] FOR[facility]LY [facility]ITALRL [facility]STRN [place] [facility] LIPID PANEL FASTING TRIGLYCERI DE [MASS/VOLU ME] IN SERUM OR PLASMA 114 mg/dL 0 - 150 02/04 Specimen Type: SERUM No comment entered. Ordering Provider: DULCE JULIAN Report Released Date/Time: January 23, 2025 05:03 PM Reporting Lab: [facility] [place] [facility] [address] [facility] [address] Performing Lab: [place] [facility] [place] [facility] [address] [facility] [address] [place] [facility] [facility] LIPID PANEL FASTING CHOLESTERO L IN LDL [MASS/VOLU ME] IN SERUM OR PLASMA BY CALCULATIO N 63 mg/dL 0 - 129 02/04 Specimen Type: SERUM No comment entered. Ordering Provider: DULCE JULIAN Report Released Date/Time: January 23, 2025 05:03 PM Reporting Lab: [facility] [place] [facility] [address] [facility] [address] Performing Lab: [place] [facility] [place] [facility] [address] [facility] [address] [place] [facility] [place] [facility] LIPID PANEL FASTING CHOLESTERO L.TOTAL/CH OLESTEROL IN HDL [MASS RATIO] IN SERUM OR PLASMA 2.8 02/04 Specimen Type: SERUM No comment entered. Ordering Provider: DULCE JULIAN Report Released Date/Time: January 23, 2025 05:03 PM Reporting Lab: [facility] [place] [facility] [address] [facility] [address] Performing Lab: [place] [facility] [place] [facility] [address] [facility] [address] [place] [facility] [place] [facility] LIPID PANEL FASTING CHOLESTERO L IN HDL [MASS/VOLU ME] IN SERUM OR PLASMA 49 mg/dL 40 02/04 Specimen Type: SERUM No comment entered. Ordering Provider: DULCE JULIAN Report Released Date/Time: January 23, 2025 05:03 PM Reporting Lab: [facility] [place] [facility] [address] [facility] [address] Performing Lab: [place] [facility] [place] [facility] [address] [facility] [address] [place] [facility] [place] [facility] LIVER FUNCTION PROTEIN [MASS/VOLU ME] IN SERUM OR PLASMA 7.3 g/dL 6.4 - 8.3 02/04 Specimen Type: SERUM No comment entered. Ordering Provider: DULCE JULIAN Report Released Date/Time: January 23, 2025 05:03 PM Reporting Lab: FORMERLY [facility]OSPITALRL TRN [facility]ITALUSE[address] [address] Performing Lab: FORMERLY [facility]PITALRL WSTRN [facility]ITALUSE[facility] [address] [facility] [address] FORMERLY [facility] HOSPITALRINFIRMARY LTAC HOSPITALN [facility] LIVER FUNCTION ALBUMIN [MASS/VOLU ME] IN SERUM OR PLASMA BY BROMOCRESO L PURPLE (BCP) DYE BINDING METHOD 4.7 g/dL 3.2 - 4.6 02/04 H Specimen Type: SERUM No comment entered. Ordering Provider: DULCE JULIAN Report Released Date/Time: January 23, 2025 05:03 PM Reporting Lab: FORMERLY [facility]OSPITALRL TRN [facility]ITALUSE[address] [address] Performing Lab: [place] [facility] [facility]ITALUSE[address] [address] [facility] LIVER FUNCTION ALKALINE PHOSPHATAS E [ENZYMATIC ACTIVITY/V OLUME] IN SERUM OR PLASMA 86 U/L 40 - 150 02/04 Specimen Type: SERUM No comment entered. Ordering Provider: DULCE JULIAN Report Released Date/Time: January 23, 2025 05:03 PM Reporting Lab: FORMERLY [facility]OSPITALRL TRN [facility]ITALUSE[address] [address] Performing Lab: FORMERLY [facility]OSPITALRL WSTRN [facility]ITALUSE[address] [address] FORMERLY [facility] HOSPITALRINFIRMARY LTAC HOSPITALN [facility] LIVER FUNCTION ASPARTATE AMINOTRANS FERASE [ENZYMATIC ACTIVITY/V OLUME] IN SERUM OR PLASMA BY WITH P-5'-P 30 U/L 5 - 34 02/04 Specimen Type: SERUM No comment entered. Ordering Provider: DULCE JULIAN Report Released Date/Time: January 23, 2025 05:03 PM Reporting Lab: FORMERLY [facility]OSPITALRL TRN [facility]ITALUSE[address] [address] Performing Lab: FORMERLY [facility] HOSPITALRL TRN [facility]ITALUSECR[facility]SE [facility] [address] [facility] [address] FORMERLY [facility] HOSPITALRL TRN [facility]ITALUSE [facility] LIVER FUNCTION ALANINE AMINOTRANS FERASE [ENZYMATIC ACTIVITY/V OLUME] IN SERUM OR PLASMA BY WITH P-5'-P 35 U/L 0 - 55 02/04 Specimen Type: SERUM No comment entered. Ordering Provider: DULCE JULIAN Report Released Date/Time: January 23, 2025 05:03 PM Reporting Lab: FORMERLY [facility] HOSPITALRL TRN [facility]PITALUSECR[facility] [address] [facility] [address] Performing Lab: FORMERLY [facility] HOSPITALRSPRINGHILL MEDICAL CENTERTRN [facility]PITALUSECR[facility] [address] [facility] [address] [facility]N [facility] LIVER FUNCTION BILIRUBIN. TOTAL [MASS/VOLU ME] IN SERUM OR PLASMA 1.6 mg/dL 0.2 - 1.2 02/04 H Specimen Type: SERUM No comment entered. Ordering Provider: DULCE JULIAN Report Released Date/Time: January 23, 2025 05:03 PM Reporting Lab: FORMERLY [facility] HOSPITALRSPRINGHILL MEDICAL CENTERTRN [facility] [address] [facility] [address] Performing Lab: FORMERLY [facility] HOSPITALRL TRN [facility]ITALUSECR[facility] [address] [facility] [address] [facility]ITALN [facility] LIVER FUNCTION BILIRUBIN. DIRECT [MASS/VOLU ME] IN SERUM OR PLASMA 0.4 mg/dL 0 - 0.5 02/04 Specimen Type: SERUM No comment entered. Ordering Provider: DULCE JULIAN Report Released Date/Time: January 23, 2025 05:03 PM Reporting Lab: FORMERLY [facility] HOSPITALRL TRN [facility]PITALUSECR[facility] [address] [facility] [address] Performing Lab: FORMERLY [facility] HOSPITALRL TRN [facility]PITALUSE[address] [address] [facility]ITALN [facility] TSH THYROTROPI N [UNITS/VOL UME] IN SERUM OR PLASMA BY DETECTION LIMIT <= 0.005 MIU/L 0.68 u[IU]/mL 0.35 - 4.94 02/04 Specimen Type: SERUM No comment entered. Ordering Provider: DULCE JULIAN Report Released Date/Time: January 23, 2025 05:03 PM Reporting Lab: [facility] [place] [facility] [address] [facility] [address] Performing Lab: [facility] [facility] [address] [facility] [address] [place] [facility] [place] [facility] CBC AND DIFF (AUTO) LEUKOCYTES [#/VOLUME] IN BLOOD BY AUTOMATED COUNT 6.09 10*3/uL 4.50 - 11.00 02/04 Specimen Type: BLOOD No comment entered. Ordering Provider: DULCE JULIAN Report Released Date/Time: January 23, 2025 05:03 PM Reporting Lab: [facility] [facility] [address] [facility] [address] Performing Lab: [facility] [facility] [address] [facility] [address] [place] [facility] [place] [facility] CBC AND DIFF (AUTO) ERYTHROCYT ES [#/VOLUME] IN BLOOD BY AUTOMATED COUNT 5.48 10*6/uL 4.23 - 5.66 02/04 Specimen Type: BLOOD No comment entered. Ordering Provider: DULCE JULIAN Report Released Date/Time: January 23, 2025 05:03 PM Reporting Lab: [facility] [place] [facility] [address] [facility] [address] Performing Lab: [facility] [facility] [address] [facility] [address] [place] [facility] [place] [facility] CBC AND DIFF (AUTO) HEMOGLOBIN [MASS/VOLU ME] IN BLOOD 15.1 g/dL 12.8 - 17 02/04 Specimen Type: BLOOD No comment entered. Ordering Provider: DULCE JULIAN Report Released Date/Time: January 23, 2025 05:03 PM Reporting Lab: [facility] [facility] [address] [facility] [address] Performing Lab: [facility] [place] [facility] [address] [facility] [address] [place] [facility] [place] [facility] CBC AND DIFF (AUTO) HEMATOCRIT [VOLUME FRACTION] OF BLOOD BY AUTOMATED COUNT 45.9 39.2 - 50.4 02/04 Specimen Type: BLOOD No comment entered. Ordering Provider: DULCE JULIAN Report Released Date/Time: January 23, 2025 05:03 PM Reporting Lab: FORMER[facility]OSPITALRSPRINGHILL MEDICAL CENTERTRN [place] [address] [address] Performing Lab: FORMERLY [facility] HOSPITALRL [place]STRN [place] [facility] [address] [facility] [address] FORMERLY [facility]OSPITALRL WSTRN [place] [facility] CBC AND DIFF (AUTO) MCV [ENTITIC VOLUME] BY AUTOMATED COUNT 83.8 fL 82 - 99 02/04 Specimen Type: BLOOD No comment entered. Ordering Provider: DULCE JULIAN Report Released Date/Time: January 23, 2025 05:03 PM Reporting Lab: FORMERLY [facility] HOSPITALRINFIRMARY LTAC HOSPITALN [facility]ITALUSE[address] [address] Performing Lab: FORMERLY [facility]OSPITALRSPRINGHILL MEDICAL CENTERTRN [place] [address] [address] FORMERLY [facility] HOSPITALRINFIRMARY LTAC HOSPITALN [place] [facility] CBC AND DIFF (AUTO) MCHC [MASS/VOLU ME] BY AUTOMATED COUNT 32.9 g/dL 30.8 - 35.1 02/04 Specimen Type: BLOOD No comment entered. Ordering Provider: DULCE JULIAN Report Released Date/Time: January 23, 2025 05:03 PM Reporting Lab: FORMER[facility]OSPITALRSPRINGHILL MEDICAL CENTERTRN [place] [address] [address] Performing Lab: FORMERLY [facility] HOSPITALRL TRN [place] [address] [address] FORMERLY [facility]OSPITALRINFIRMARY LTAC HOSPITALN [place] [facility] CBC AND DIFF (AUTO) PLATELETS [#/VOLUME] IN BLOOD BY AUTOMATED COUNT 195 10*3/uL 140 - 360 02/04 Specimen Type: BLOOD No comment entered. Ordering Provider: DULCE JULIAN Report Released Date/Time: January 23, 2025 05:03 PM Reporting Lab: [facility]MER[facility]PITALRSPRINGHILL MEDICAL CENTERTRN [place] [address] [address] Performing Lab: FORMERLY [facility] HOSPITALRL TRN [place] [address] [place] [address] [place] [facility] CBC AND DIFF (AUTO) PLATELET MEAN VOLUME [ENTITIC VOLUME] IN BLOOD BY AUTOMATED COUNT 10.0 fL 9.2 - 12.4 02/04 Specimen Type: BLOOD No comment entered. Ordering Provider: DULCE JULIAN Report Released Date/Time: January 23, 2025 05:03 PM Reporting Lab: [place] [facility] [address] [facility] [address] Performing Lab: [place] [facility] [address] [facility] [address] FORMERLY [facility]OSPITALRL [facility]STRN [place] [facility] CBC AND DIFF (AUTO) ERYTHROCYT E DISTRIBUTI ON WIDTH [RATIO] BY AUTOMATED COUNT 13.7 12.0 - 16.0 02/04 Specimen Type: BLOOD No comment entered. Ordering Provider: DULCE JULIAN Report Released Date/Time: January 23, 2025 05:03 PM Reporting Lab: [place] [facility] [address] [address] Performing Lab: [place] [facility] [address] [facility] [address] [place] [facility] CBC AND DIFF (AUTO) MONOCYTES [#/VOLUME] IN BLOOD BY AUTOMATED COUNT 0.51 10*3/uL 0.30 - 1.10 02/04 Specimen Type: BLOOD No comment entered. Ordering Provider: DULCE JULIAN Report Released Date/Time: January 23, 2025 05:03 PM Reporting Lab: [place] [facility] [address] [facility] [address] Performing Lab: [place] [address] [address] [place] [facility] CBC AND DIFF (AUTO) MCH [ENTITIC MASS] BY AUTOMATED COUNT 27.6 pg 26.2 - 32.6 02/04 Specimen Type: BLOOD No comment entered. Ordering Provider: DULCE JULIAN Report Released Date/Time: January 23, 2025 05:03 PM Reporting Lab: [facility] [facility] [address] [facility] [address] Performing Lab: [facility] [place] [facility] [address] [facility] [address] [place] [facility] [place] [facility] CBC AND DIFF (AUTO) NEUTROPHIL S/100 LEUKOCYTES IN BLOOD BY AUTOMATED COUNT 68.3 43.7 - 75.8 02/04 Specimen Type: BLOOD No comment entered. Ordering Provider: DULCE JULIAN Report Released Date/Time: January 23, 2025 05:03 PM Reporting Lab: [facility] [place] [facility] [address] [facility] [address] Performing Lab: [facility] [place] [facility] [address] [facility] [address] [place] [facility] CBC AND DIFF (AUTO) LYMPHOCYTE S/100 LEUKOCYTES IN BLOOD BY AUTOMATED COUNT 20.7 14.0 - 42.3 02/04 Specimen Type: BLOOD No comment entered. Ordering Provider: DULCE JULIAN Report Released Date/Time: January 23, 2025 05:03 PM Reporting Lab: [facility] [facility] [address] [facility] [address] Performing Lab: [facility] [place] [facility] [address] [facility] [address] [place] [facility] [facility] CBC AND DIFF (AUTO) MONOCYTES/ 100 LEUKOCYTES IN BLOOD BY AUTOMATED COUNT 8.4 5.1 - 13.7 02/04 Specimen Type: BLOOD No comment entered. Ordering Provider: DULCE JULIAN Report Released Date/Time: January 23, 2025 05:03 PM Reporting Lab: [facility] [facility] [address] [facility] [address] Performing Lab: [facility] [place] [facility] [address] [facility] [address] [place] [facility] [facility] CBC AND DIFF (AUTO) EOSINOPHIL S/100 LEUKOCYTES IN BLOOD BY AUTOMATED COUNT 2.0 0.4 - 6.8 02/04 Specimen Type: BLOOD No comment entered. Ordering Provider: DULCE JULIAN Report Released Date/Time: January 23, 2025 05:03 PM Reporting Lab: [facility] [facility] [address] [facility] [address] Performing Lab: [facility] [facility] [address] [facility] [address] [place] [facility] [place] [facility] CBC AND DIFF (AUTO) BASOPHILS/ 100 LEUKOCYTES IN BLOOD BY AUTOMATED COUNT 0.3 0.1 - 2.0 02/04 Specimen Type: BLOOD No comment entered. Ordering Provider: DULCE JULIAN Report Released Date/Time: January 23, 2025 05:03 PM Reporting Lab: [facility] [facility] [address] [facility] [address] Performing Lab: [facility] [place] [facility] [address] [facility] [address] [place] [facility] [place] [facility] CBC AND DIFF (AUTO) NEUTROPHIL S [#/VOLUME] IN BLOOD BY AUTOMATED COUNT 4.16 10*3/uL 2.20 - 7.60 02/04 Specimen Type: BLOOD No comment entered. Ordering Provider: DULCE JULIAN Report Released Date/Time: January 23, 2025 05:03 PM Reporting Lab: [facility] [facility] [address] [facility] [address] Performing Lab: [facility] [facility] [address] [facility] [address] [facility] [facility] CBC AND DIFF (AUTO) LYMPHOCYTE S [#/VOLUME] IN BLOOD BY AUTOMATED COUNT 1.26 10*3/uL 1.00 - 3.20 02/04 Specimen Type: BLOOD No comment entered. Ordering Provider: DULCE JULIAN Report Released Date/Time: January 23, 2025 05:03 PM Reporting Lab: [facility] [facility] [address] [facility] [address] Performing Lab: [facility] [facility] [address] [facility] [address] [facility] [place] [facility] CBC AND DIFF (AUTO) EOSINOPHIL S [#/VOLUME] IN BLOOD BY AUTOMATED COUNT 0.12 10*3/uL 0.03 - 0.44 02/04 Specimen Type: BLOOD No comment entered. Ordering Provider: DULCE JULIAN Report Released Date/Time: January 23, 2025 05:03 PM Reporting Lab: [place] [facility] [place] [facility] [address] [facility] [address] Performing Lab: [place] [facility] [address] [facility] [address] [place] [facility] [facility] CBC AND DIFF (AUTO) BASOPHILS [#/VOLUME] IN BLOOD BY AUTOMATED COUNT 0.02 10*3/uL 0.01 - 0.13 02/04 Specimen Type: BLOOD No comment entered. Ordering Provider: DULCE JULIAN Report Released Date/Time: January 23, 2025 05:03 PM Reporting Lab: [place] [address] [address] Performing Lab: [place] [address] [address] [place] [facility] CBC AND DIFF (AUTO) IMMATURE GRANULOCYT ES/100 LEUKOCYTES IN BLOOD BY AUTOMATED COUNT 0.3 0.0 - 0.7 02/04 Specimen Type: BLOOD No comment entered. Ordering Provider: DULCE JULIAN Report Released Date/Time: January 23, 2025 05:03 PM Reporting Lab: [place] [address] [address] Performing Lab: [place] [address] [address] [place] [facility] CBC AND DIFF (AUTO) IMMATURE GRANULOCYT ES [#/VOLUME] IN BLOOD BY AUTOMATED COUNT 0.02 10*3/uL 0.00 - 0.06 02/04 Specimen Type: BLOOD No comment entered. Ordering Provider: DULCE JULIAN Report Released Date/Time: January 23, 2025 05:03 PM Reporting Lab: [place] [address] [address] Performing Lab: [place] [address] [place] [address] [facility]LY [facility]OSPITALRINFIRMARY LTAC HOSPITALN [facility] CBC AND DIFF (AUTO) NUCLEATED ERYTHROCYT ES/100 LEUKOCYTES [RATIO] IN BLOOD BY AUTOMATED COUNT 0.0 0.0 - 0.0 02/04 Specimen Type: BLOOD No comment entered. Ordering Provider: DULCE JULIAN Report Released Date/Time: January 23, 2025 05:03 PM Reporting Lab: FOR[facility]LY [facility] HOSPITALRINFIRMARY LTAC HOSPITALN [facility]ITALUSE[facility] [address] [facility] [address] Performing Lab: FORMERLY [facility]PITALRSPRINGHILL MEDICAL CENTERTRN [facility]ITALUSECR[facility] [address] [facility] [address] [facility] CBC AND DIFF (AUTO) NUCLEATED ERYTHROCYT ES [#/VOLUME] IN BLOOD BY AUTOMATED COUNT 0.00 10*3/uL 0.00 - 0.00 02/04 Specimen Type: BLOOD No comment entered. Ordering Provider: DULCE JULIAN Report Released Date/Time: January 23, 2025 05:03 PM Reporting Lab: FORMERLY [facility]OSPITALRINFIRMARY LTAC HOSPITALN [address] [address] Performing Lab: FORMERLY [facility]PITALRINFIRMARY LTAC HOSPITALN [address] [address] [facility]N [facility] MICROSCO PIC AUTOMATE D, URINE LEUKOCYTES [#/AREA] IN URINE SEDIMENT BY MICROSCOPY HIGH POWER FIELD 0-5/[HPF ] 0 - 5 02/04 Specimen Type: URINE Comment: If Glucose = >500 and Ketones are positive, please alert the Physician. Ordering Provider: DULCE JULIAN Report Released Date/Time: January 23, 2025 05:03 PM Reporting Lab: FORMER[facility]PITALRSPRINGHILL MEDICAL CENTERTRN [facility]ITALUSECR[facility] [address] [facility] [address] Performing Lab: FORMERLY [facility]OSPITALRINFIRMARY LTAC HOSPITALN [facility]OSPITALUSE[address] [address] [facility]N [facility] MICROSCO PIC AUTOMATE D, URINE MUCUS [#/AREA] IN URINE SEDIMENT BY MICROSCOPY LOW POWER FIELD FEW/[LPF ] 02/04 Specimen Type: URINE Comment: If Glucose = >500 and Ketones are positive, please alert the Physician. Ordering Provider: DULCE JULIAN Report Released Date/Time: January 23, 2025 05:03 PM Reporting Lab: [place] [facility] [address] [facility] [address] Performing Lab: [place] [facility] [address] [facility] [address] [place] [facility] [facility] MICROSCO PIC AUTOMATE D, URINE ERYTHROCYT ES [#/AREA] IN URINE SEDIMENT BY MICROSCOPY HIGH POWER FIELD 3-5/[HPF ] 0 - 3 02/04 Specimen Type: URINE Comment: If Glucose = >500 and Ketones are positive, please alert the Physician. Ordering Provider: DULCE JULIAN Report Released Date/Time: January 23, 2025 05:03 PM Reporting Lab: [place] [facility] [address] [facility] [address] Performing Lab: [place] [address] [address] [facility]LY [facility]OSPITALRL WSTRN [place] [facility] MICROSCO PIC AUTOMATE D, URINE EPITHELIAL CELLS.SQUA MOUS [#/AREA] IN URINE SEDIMENT BY MICROSCOPY HIGH POWER FIELD FEW/[HPF ] 02/04 Specimen Type: URINE Comment: If Glucose = >500 and Ketones are positive, please alert the Physician. Ordering Provider: DULCE JULIAN Report Released Date/Time: January 23, 2025 05:03 PM Reporting Lab: [place] [address] [address] Performing Lab: [place] [facility] [address] [facility] [address] FORMERLY [facility] HOSPITALRL TRN [place] [facility] URINALYS IS CLEAN CATCH COLOR OF URINE Yellow 02/04 Specimen Type: URINE Comment: If Glucose = >500 and Ketones are positive, please alert the Physician. Ordering Provider: DULCE JULIAN Report Released Date/Time: January 23, 2025 05:03 PM Reporting Lab: [place] [address] [address] Performing Lab: [place] [facility] [facility] [address] [facility] [address] FOR[facility]LY [facility]PITALRL WSTRN [place] [facility] URINALYS IS CLEAN CATCH APPEARANCE OF URINE Clear 02/04 Specimen Type: URINE Comment: If Glucose = >500 and Ketones are positive, please alert the Physician. Ordering Provider: DULCE JULIAN Report Released Date/Time: January 23, 2025 05:03 PM Reporting Lab: [facility]OSPITALRL WSTRN [place] [facility] [address] [facility] [address] Performing Lab: [place] [facility] [place] [facility] [address] [facility] [address] [facility] URINALYS IS CLEAN CATCH GLUCOSE [MASS/VOLU ME] IN URINE Normalmg /dL 02/04 Specimen Type: URINE Comment: If Glucose = >500 and Ketones are positive, please alert the Physician. Ordering Provider: DULCE JULIAN Report Released Date/Time: January 23, 2025 05:03 PM Reporting Lab: [place] [facility] [place] [address] [address] Performing Lab: [facility] [place] [facility] [address] [facility] [address] [facility] URINALYS IS CLEAN CATCH KETONES [MASS/VOLU ME] IN URINE BY TEST STRIP NEGATIVE mg/dL 02/04 Specimen Type: URINE Comment: If Glucose = >500 and Ketones are positive, please alert the Physician. Ordering Provider: DULCE JULIAN Report Released Date/Time: January 23, 2025 05:03 PM Reporting Lab: [place] [facility] [place] [facility] [address] [address] Performing Lab: [place] [facility] [place] [address] [address] [place] [facility] URINALYS IS CLEAN CATCH ERYTHROCYT ES [PRESENCE] IN URINE SEDIMENT BY LIGHT MICROSCOPY SMALLmg/ dL 02/04 Specimen Type: URINE Comment: If Glucose = >500 and Ketones are positive, please alert the Physician. Ordering Provider: DULCE JULIAN Report Released Date/Time: January 23, 2025 05:03 PM Reporting Lab: [facility] [place] [address] [facility] [address] Performing Lab: [facility] [place] [facility] [address] [facility] [address] [facility] URINALYS IS CLEAN CATCH PROTEIN [MASS/VOLU ME] IN URINE BY TEST STRIP 50 mg/dL 02/04 Specimen Type: URINE Comment: If Glucose = >500 and Ketones are positive, please alert the Physician. Ordering Provider: DULCE JULIAN Report Released Date/Time: January 23, 2025 05:03 PM Reporting Lab: [facility] [place] [address] [facility] [address] Performing Lab: [facility] [place] [facility] [address] [facility] [address] [place] [facility] URINALYS IS CLEAN CATCH NITRITE [PRESENCE] IN URINE NEGATIVE mg/dL 02/04 Specimen Type: URINE Comment: If Glucose = >500 and Ketones are positive, please alert the Physician. Ordering Provider: DULCE JULIAN Report Released Date/Time: January 23, 2025 05:03 PM Reporting Lab: [facility] [facility] [address] [facility] [address] Performing Lab: [facility] [address] [facility] [address] [facility] URINALYS IS CLEAN CATCH BILIRUBIN. TOTAL [PRESENCE] IN URINE NEGATIVE mg/dL 02/04 Specimen Type: URINE Comment: If Glucose = >500 and Ketones are positive, please alert the Physician. Ordering Provider: DULCE JULIAN Report Released Date/Time: January 23, 2025 05:03 PM Reporting Lab: [facility] [address] [facility] [address] Performing Lab: [facility] [address] [facility] [address] [facility] URINALYS IS CLEAN CATCH SPECIFIC GRAVITY OF URINE BY REFRACTOME TRY 1.028 1.016 - 1.022 02/04 H Specimen Type: URINE Comment: If Glucose = >500 and Ketones are positive, please alert the Physician. Ordering Provider: DULCE JULIAN Report Released Date/Time: January 23, 2025 05:03 PM Reporting [facility] [address] [facility] [address] Performing Lab: [facility] [address] [facility] [address] [facility] URINALYS IS CLEAN CATCH PH OF URINE BY TEST STRIP 5.5 5.0 - 9.0 02/04 Specimen Type: URINE Comment: If Glucose = >500 and Ketones are positive, please alert the Physician. Ordering Provider: DULCE JULIAN Report Released Date/Time: January 23, 2025 05:03 PM Reporting Lab[facility] [address] Performing Lab: [facility] [address] [facility] [address] [facility] URINALYS IS CLEAN CATCH UROBILINOG EN [MASS/VOLU ME] IN URINE BY TEST STRIP Normalmg /dL <2.0 - 2.0 02/04 Specimen Type: URINE Comment: If Glucose = >500 and Ketones are positive, please alert the Physician. Ordering Provider: DULCE JULIAN Report Released Date/Time: January 23, 2025 05:03 PM Reporting Lab: [facility] [place] [facility] [address] [address] [address]: [facility] [address] [facility] [address] [facility] [place] [facility] URINALYS IS CLEAN CATCH LEUKOCYTE ESTERASE [PRESENCE] IN URINE BY TEST STRIP NEGATIVE 02/04 Specimen Type: URINE Comment: If Glucose = >500 and Ketones are positive, please alert the Physician. Ordering Provider: DULCE JULIAN Report Released Date/Time: January 23, 2025 05:03 PM Reporting Lab: [facility] [place] [facility] [address] [facility] [address] Performing Lab: [facility] [place] [facility] [address] [facility] [address] [facility] [place] LIVER FUNCTION PROTEIN [MASS/VOLU ME] IN SERUM OR PLASMA 7.2 g/dL 6.0 - 8.3 07/29 Specimen Type: SERUM No comment entered. Ordering Provider: DULCE JULIAN Report Released Date/Time: Jul 24, 2024 09:58 PM Reporting Lab: [facility] [place] [facility] [address] [facility] [address] Performing Lab: [facility] [place] [facility] [address] [facility] [address] [place] [facility] [place] [facility] LIVER FUNCTION ALBUMIN [MASS/VOLU ME] IN SERUM OR PLASMA 4.1 g/dL 3.5 - 5.0 07/29 Specimen Type: SERUM No comment entered. Ordering Provider: DULCE JULIAN Report Released Date/Time: Jul 24, 2024 09:58 PM Reporting Lab: [facility] [place] [facility] [address] [facility] [address] Performing Lab: [facility] [place] [facility] [address] [facility] [address] [place] [facility] [facility] [facility] LIVER FUNCTION ALKALINE PHOSPHATAS E [ENZYMATIC ACTIVITY/V OLUME] IN SERUM OR PLASMA 69 U/L 40 - 150 07/29 Specimen Type: SERUM No comment entered. Ordering Provider: DULCE JULIAN Report Released Date/Time: Jul 24, 2024 09:58 PM Reporting Lab: [facility] [place] [facility] [address] [facility] [address] Performing Lab: [facility] [place] [facility] [address] [facility] [address] [place] [facility] [facility] [facility] LIVER FUNCTION ASPARTATE AMINOTRANS FERASE [ENZYMATIC ACTIVITY/V OLUME] IN SERUM OR PLASMA 20 U/L 5 - 34 07/29 Specimen Type: SERUM No comment entered. Ordering Provider: DULCE JULIAN Report Released Date/Time: Jul 24, 2024 09:58 PM Reporting Lab: [facility] [place] [facility] [address] [facility] [address] Performing Lab: [facility] [place] [facility] [address] [facility] [address] [place] [facility] [facility] [facility] LIVER FUNCTION ALANINE AMINOTRANS FERASE [ENZYMATIC ACTIVITY/V OLUME] IN SERUM OR PLASMA 26 U/L 07/29 Specimen Type: SERUM No comment entered. Ordering Provider: DULCE JULIAN Report Released Date/Time: Jul 24, 2024 09:58 PM Reporting Lab: [place] [facility] [place] [facility] [address] [facility] [address] Performing Lab: [place] [facility] [place] [facility] [address] [facility] [address] [place] [facility] [place] [facility] LIVER FUNCTION BILIRUBIN. TOTAL [MASS/VOLU ME] IN SERUM OR PLASMA 1.1 mg/dL 0.2 - 1.2 07/29 Specimen Type: SERUM No comment entered. Ordering Provider: DULCE JULIAN Report Released Date/Time: Jul 24, 2024 09:58 PM Reporting Lab: [facility] [place] [facility] [address] [facility] [address] Performing Lab: [facility] [place] [facility] [address] [facility] [address] [place] [facility] [facility] [facility] Vital Signs Combined list of inpatient and outpatient Vital Signs from Department of Defense and Veterans Affairs, ranging from 12 months to all on record, depending upon the facility. Vital Sign Value Date Comments Source SYSTOLIC BLOOD PRESSURE 136 02/06/20 25 07:58:39 [facility] [place] [facility] DIASTOLIC BLOOD PRESSURE 78 025 07:58:39 [facility] [place] [facility] PULSE OXIMETRY 96 % 02/05/2025 07:58:39 [facility] WEIGHT 206 02/05/2025 07[facility]58:39 [facility] [place] [facility] BMI 35 kg/m2 02/05/2025 07:58:39 [facility] PAIN 9 02/05/2025 07:58:39 [facility] HEIGHT 64 02/05/2025 07:58:39 [facility] TEMPERATURE 97.8 02/05/2025 07:58:39 [facility] PULSE 93 02/05/2025 07[facility]58:39 [facility] RESPIRATION 16 02/05/2025 07:58:39 [facility] SYSTOLIC BLOOD PRESSURE 132 08/05/20 24 10:22:51 [facility] DIASTOLIC BLOOD PRESSURE 81 024 10:22:51 [facility] PULSE OXIMETRY 98 08/05/2024 10:22:51 [facility] WEIGHT 206.1 08/05/2024 10:22:51 [facility] BMI 35 kg/m2 08/05/2024 10:22:51 [facility] PAIN 1 08/05/2024 10:22:51 [facility] HEIGHT 64 08/05/2024 10:22:51 [facility] TEMPERATURE 97.9 08/05/2024 10:22:51 [facility] PULSE 53 08/05/2024 10:22:51 [facility] RESPIRATION 16 08/05/2024 10:22:51 [facility] Encounters Combined list of: 1) Encounters from Department of Veterans Affairs facilities going backup to the last 18 months, not all VA inpatient encounters are included; 2) Encounters from the Department of Defense facilities going backup to 280 months. Location Location Details Encounter Type Encounter Number Reason For Visit Attending Provider ADM Date DC Date Status Disposition Source [facility] Encounter [id number] 11/28 [facility] Encounter [id number] 12/03 [facility] OFFICE O/P EST LOW 20 MIN [id number] Diagnos is: ICD-10- CM J37.0 Chronic laryngi tis SOREN JULIAN RD 02/02 [facility] Out[facility] Encounter [id number] 02/18 [facility] OFF/OP CNSLTJ NEW/EST MOD 40 [id number] Diagnos is: ICD-10- CM R13.12 Dysphag ia, orophar yngeal phase KAYA HERRON 02/24 [facility] COMPRE OPH EXAM EST PT 1/> [id number] 1. Diagnos is: ICD-10- CM H04.123 Dry eye syndrom e of bilater al lacrima l glands PUJA,PAYAL H B 06/03 [facility] FIT SPECTACLES MONOFOCAL [id number] Diagnos is: ICD-10- CM Z46.0 Encount er for fit/adj st of spectac les and contact lenses PUJA,PAYAL H B 06/03 [facility] Out[facility] Encounter [id number] 06/30 [facility] OFFICE O/P EST MOD 30 MIN [id number] 1. Diagnos is: ICD-10- CM R73.01 Impaire d fasting glucose SOREN JULIAN RD D 08/05 [facility] OFFICE O/P EST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
--- NOTE | 2025-04-29 09:52 | MHC.OFFVIS ---
Intake Visit Reasons: Microscopic Hematuria Intake Note: New Patient is present for microscopic Hematuria Urology Rx:none Blood Thinners:none Imaging completed: none Smoker: yes former smoker Direct Support Professional Home Health Required: No Accompanied by: Self / Same As Patient Allergies No Known Allergies Allergy (Verified 04/29/25 10:03) HPI Comments Details: Tra is a pleasant male. He is a patient of Dr. Barnard. He is seen for the following urologic conditions. - microscopic hematuria - bladder outlet obstruction No blood seen on UA today On Plavix baseline [facility] labs show small blood Does have some bladder symptoms Discussed bladder symptomatology At this stage we will following next year with repeat UA Should he have an episode of gross hematuria will require cystoscopy Review of Systems Const Denies chills and Denies fever(s) Card Reports no additional complaints and Denies syncope Resp Denies cough GI Denies abdominal pain and Denies heartburn Reports as per HPI and Denies change in libido Neuro Denies syncope Psych Denies change in libido Endo Denies change in libido Physical Exam Const General: cooperative, healthy appearing, comfortable and no acute distress Orientation/consciousness: patient oriented x3 HEENT Face and sinus: Yes normal facial exam Mouth: moist mucous membranes Neck Neck: Yes normal visual inspection, Yes full ROM and Yes trachea midline Chest Chest palpation & inspection: normal inspection of the chest Resp Effort & Inspection: normal respiratory effort, able to speak in complete sentences and no respiratory distress GI Inspection: Yes normal to inspection Back/Spine/Pelvis Cervical Spine: normal cervical lordosis Thoracic/Lumbar Spine: thoracic and lumbar spine normal to inspection Skin General skin exam: no rashes or lesions noted Neuro General: patient oriented x3, gait normal, tone normal and moves all extremities Extrem General: Yes normal to inspection and Yes capillary refill normal Assessment & Plan Assessment & Plan (1) Microscopic hematuria: Code(s): R31.29 - Other microscopic hematuria Category: Medical (2) Bladder outlet obstruction: Code(s): N32.0 - Bladder-neck obstruction Category: Medical Plan Twelve month follow-up PSA Orders: Orders Prostate Specific Antigen 12 Months N32.0 - Bladder-neck obstruction Patient Instructions: This note is constructed using voice recognition software. While every effort has been made to ensure accuracy tile layer supervisor errors may have been included. Imaging studies, laboratory and physical exam results were discussed and reviewed in detail. No major barriers to patient understanding were identified. An opportunity to ask questions regarding the treatment plan was provided. All questions were answered. The patient expressed understanding and agreement with the above treatment plan. The patient is aware they should contact our office by phone for worsening of their current condition or the appearance of new urologic symptoms. Compliance is encouraged with any medications and followup testing that is ordered. It is a privilege to participate in the urologic care of your patient. If you have any questions or concerns regarding treatment for the above conditions, or other urologic issues, please do not hesitate to contact me. The office telephone contact is [phone]. Sincerely, Dr Alexei Gilman MD, [facility] - Urology Compassionate Specialist Care for the Genitourinary System Coding Level of Care Code New Pt Level 3 (37726) Diagnoses Microscopic hematuria R31.29 Bladder outlet obstruction N32.0
== END 2025-04-29 10:29 | disposition home or self-care (01) ==
LOC: HO.HUSH 09:33
PROVIDERS: PCP Internal Medicine; Visit Provider Urology
DX: N32.0 Bladder-neck obstruction (principal); R31.29 Other microscopic hematuria
CPT/HCPCS: 99203

== ENCOUNTER → 2025-04-29 09:32 | Outpatient (BNVA) | payer OTHER, SELFPAY | PROVIDERS: PCP Internal Medicine; Visit Provider Urology | DX: N32.0 Bladder-neck obstruction (principal); R31.29 Other microscopic hematuria | CPT/HCPCS: 81003; 99202 ==